=== PATIENT | male | born 1950 | race African-American/Black ===

== ENCOUNTER 2020-01-18 08:07 | Emergency (ER) | payer OTHER ==
[2020-01-18] MEDS ORDERED: DIPHENHYDRAMINE 50 MG/ML VIAL ONE (08:36)
[2020-01-18] MEDS ORDERED: METHYLPREDNISOLONE 125 MG INJ ONE (08:36)
[2020-01-18 09:04] LABS: Absolute Lymphocytes (CBC) 0.5 K/uL (0.7-4.9); Basophils % 0.4 % (0-1.3); Hematocrit 28.9 % (39.6-49.0); Lymphocytes % 4.3 % (15.3-44.8); MPV 8.8 fL (7.6-11.3); RBC Red Blood Cell Count 2.45 M/uL (4.33-5.43)
[2020-01-18 09:05] LABS: Protime INR 0.91
[2020-01-18 09:14] LABS: Potassium 3.8 mmol/L (3.5-5.1); Uric Acid 10.1 mg/dL (3.5-7.2)
--- NOTE | 2020-01-18 09:23 | RAD REPORT ---
EXAM DESCRIPTION: RAD - Elbow Left 3 View - 01/18/2020 9:14 am CLINICAL HISTORY: Left elbow swelling FINDINGS: A joint effusion is suspected Bones are osteoporotic A sideplate affix is an old ulnar fracture No acute fracture or dislocation seen
--- NOTE | 2020-01-18 09:26 | RAD REPORT ---
EXAM DESCRIPTION: RAD -Hand Left 3 View - 01/18/2020 9:14 am CLINICAL HISTORY: Left hand pain FINDINGS: No fracture or dislocation is seen. Calcifications within the wrist joint. Narrowing carpometacarpal joint. Narrowing of the third MCP aiyana int Osteoporosis
[2020-01-18] MEDS ORDERED: COLCHICINE 0.6 MG TAB ONE (10:10)
--- NOTE | 2020-01-18 10:13 | RAD REPORT ---
EXAM DESCRIPTION: USExtremity Venous Uni Ltd01/18/2020 9:55 am CLINICAL HISTORY: Left arm swelling COMPARISON: None FINDINGS: The left internal jugular, left subclavian, left cephalic, left axillary, left brachial, l eft basilic veins are generally compressible and demonstrate augmentation. Doppler demonstrates good flow. IMPRESSION: No evidence of thrombus within the veins of the left upper extremity
[2020-01-18 11:03] VITALS: TEMP 98.4
[2020-01-18 11:06] VITALS: BP 118/82; O2SAT 97
[2020-01-18 12:07] LABS: Blood Morphology Comment NOTED (NOT SEEN); Macrocytosis 2+; Platelet Estimate ADEQ; Urine White Blood Cell Casts OK
[2020-01-18 12:08] LABS: Hypochromasia 1+; Target Cells 1+
--- NOTE | 2020-01-25 12:04 | ER ---
Nurse's Notes [facility] Name: Sohail Bauer Sr Age: 70 yrs Sex: Male : 1950 Arrival Date: 01/18/2020 Time: 08:10 Bed 13 Private MD: Diagnosis: Localized swelling, mass and lump, left upper limb;Gout;Inflammatory polyarthropathy Presentation: 01/17 08:11 Chief complaint: Patient states: left arm swelling and left arm pain that began this aa5 morning. 08:11 Onset of symptoms was January 18, 2020. aa5 08:11 Acuity: ANGÉLICA 3 aa5 08:11 Method Of Arrival: Wheelchair aa5 08:11 Coronavirus screen: Proceed with normal triage. Patient denies a cough. Patient denies aa5 shortness of breath or difficulty breathing. Patient denies measured and/or subjective temperature greater than 100.4F prior to today's visit. Patient denies travel on a cruise ship or to a country the [facility] currently lists as an affected area. Patient denies contact with known and/or suspected case of COVID-19. Ebola Screen: Patient negative for fever greater than or equal to 101.5 degrees Fahrenheit, and additional compatible Ebola Virus Disease symptoms. Risk Assessment: Do you want to hurt yourself or someone else? Patient reports no desire to harm self or others. 08:23 Initial Sepsis Screen: Does the patient meet any 2 criteria? No. Patient's initial bp sepsis screen is negative. Does the patient have a suspected source of infection? No. Patient's initial sepsis screen is negative. Triage Assessment: 08:22 General: Appears in no apparent distress. uncomfortable, Behavior is calm, cooperative, bp appropriate for age. Pain: Complains of pain in left hand and left elbow. EENT: No deficits noted. Neuro: No deficits noted. Cardiovascular: No deficits noted. Respiratory: No deficits noted. GI: No signs and/or symptoms were reported involving the gastrointestinal system. : No signs and/or symptoms were reported regarding the genitourinary system. Derm: Rash noted that is urticaria, on left arm. Musculoskeletal: Circulation, motion, and sensation intact. Range of motion: intact in all extremities, Swelling present in left hand and left elbow. Historical: - Allergies: 09:02 No Known Allergies; bp - Home Meds: :02 aspirin 81 mg Oral TbEC 1 tab once daily [Active]; BLOOD PRESSURE PILLS [Active]; bp - PMHx: 09:02 Hypertension; bp - Immunization history:: Adult Immunizations up to date. - Social history:: Smoking status: Patient denies any tobacco usage or history of. - Family history:: not pertinent. - Hospitalizations: : No recent hospitalization is reported. Screenin:24 Abuse screen: Denies threats or abuse. Denies injuries from another. Nutritional bp screening: No deficits noted. Tuberculosis screening: No symptoms or risk factors identified. Fall Risk None identified. Assessment: 08:24 General: SEE TRIAGE NOTE. bp 09:02 Reassessment: XRAY AT B/S. bp 10:35 Reassessment: PT D/C HOME VIA W/C, DX WITH POLYARTHROPATHY. bp Vital Signs: 08:23 BP 135 / 88; Pulse 86; Resp 17; Temp 98.4; Pulse Ox 100% ; bp 08:58 BP 128 / 83; Pulse 87; Resp 16; Pulse Ox 100% ; bp 10:31 BP 118 / 82; Pulse 99; Resp 16; Pulse Ox 97% ; bp ED Course: 08:10 Patient arrived in ED. as 08:10 Arm band placed on Patient placed in an exam room, on a stretcher. aa5 08:11 Waqas Puente MD is Attending Physician. rn 08:12 Fili Resendez, RAJAT is Primary Nurse. bp 08:20 Triage completed. aa5 08:24 Patient has correct armband on for positive identification. Bed in low position. Call bp light in reach. Side rails up X2. 08:30 Inserted saline lock: 22 gauge in right forearm, using aseptic technique. Blood bp collected. 09:15 XRAY Elbow LEFT 3 view In Process Unspecified. EDMS 09:15 XRAY Hand LEFT 3 View In Process Unspecified. EDMS 09:50 Ultrasound completed. Patient tolerated well. Notified Primary Nurse . sg3 09:54 Extremity Venous Uni Ltd In Process Unspecified. EDMS 10:36 No provider procedures requiring assistance completed. IV discontinued, intact, bp bleeding controlled, No redness/swelling at site. Pressure dressing applied. Administered Medications: 08:30 Drug: SOLU-Medrol 125 mg Route: IVP; Site: right forearm; bp 10:30 Follow up: Response: No adverse reaction; Pain is decreased bp 08:30 Drug: Benadryl 12.5 mg Route: IVP; Site: right forearm; bp 10:30 Follow up: Response: No adverse reaction; Pain is decreased bp 10:00 Drug: Colchicine-Probenecid 1 tabs Route: PO; bp 10:31 Follow up: Response: No adverse reaction bp Outcome: 10:03 Discharge ordered by . rn 10:36 Discharged to home via wheelchair, with family. bp 10:36 Condition: stable 10:36 Discharge instructions given to patient, Instructed on discharge instructions, follow up and referral plans. medication usage, Demonstrated understanding of instructions, follow-up care, medications, Prescriptions given X 2. 10:37 Patient left the ED. bp Signatures: Dispatcher [employer] EDMS Caren Navarro Roman, MD MD rn Calderon, Audri RN RN aa5 Fili Resendez RN RN bp Ladonna Roberto 3
--- NOTE | 2020-01-25 12:04 | EDPHYS ---
Physician Documentation [facility] Name: Sohail Bauer Sr Age: 70 yrs Sex: Male : 1950 Arrival Date: 01/18/2020 Time: 08:10 Bed 13 Private MD: ED Physician Waqas Puente HPI: 01/17 08:21 This 70 yrs old Black Male presents to ER via Wheelchair with complaints of Arm rn Swelling. 08:21 Reports left arm swelling, began yesterday at hand, woke up today and left arm swollen rn to elbow, + painful to move arm beyond elbow, reports has happened before, told was bursitis, no fever, no trauma. No recent surgery or hx of dvt. . Onset: The symptoms/episode began/occurred yesterday. Severity of symptoms: At their worst the symptoms were moderate in the emergency department the symptoms are unchanged. The patient has experienced a previous episode. The patient has not recently seen a physician. Historical: - Allergies: 09:02 No Known Allergies; bp - Home Meds: 09:02 aspirin 81 mg Oral TbEC 1 tab once daily [Active]; BLOOD PRESSURE PILLS [Active]; bp - PMHx: 09:02 Hypertension; bp - Immunization history:: Adult Immunizations up to date. - Social history:: Smoking status: Patient denies any tobacco usage or history of. - Family history:: not pertinent. - Hospitalizations: : No recent hospitalization is reported. ROS: 08:21 Constitutional: Negative for fever, chills, and weight loss, Neck: Negative for injury, rn pain, and swelling, Cardiovascular: Negative for chest pain, palpitations Respiratory: Negative for shortness of breath, cough, wheezing, and pleuritic chest pain, Abdomen/GI: Negative for abdominal pain, nausea, vomiting, diarrhea, and constipation, Back: Negative for injury and pain, MS/Extremity: Negative for injury, + swelling left arm Skin: Negative for injury Exam: 08:21 Constitutional: This is a well developed, well nourished patient who is awake, alert, rn and in no acute distress. Head/Face: Normocephalic, atraumatic. Cardiovascular: Regular rate and rhythm. No pulse deficits. Respiratory: Speaking full sentences. No increased work of breathing, no retractions or nasal flaring. Abdomen/GI: Soft, non-tender Skin: Warm, dry, left mid-arm with some urticarial lesions, no streaking MS/ Extremity: Pulses equal, no cyanosis. + moderate swelling of left hand without firmness or open wounds, + moderate swelling left elbow and mid-forearm, no warmth or fluctuance. Neuro: Awake and alert, GCS 15, oriented to person, place, time, and situation. Vital Signs: 08:23 BP 135 / 88; Pulse 86; Resp 17; Temp 98.4; Pulse Ox 100% ; bp 08:58 BP 128 / 83; Pulse 87; Resp 16; Pulse Ox 100% ; bp 10:31 BP 118 / 82; Pulse 99; Resp 16; Pulse Ox 97% ; bp MDM: 08:11 Patient medically screened. rn 10:01 Differential Diagnosis Gout, pseudogout, inflammatory arthritis, local allergic rn reaction, early cellulitis. . Data reviewed: vital signs, nurses notes, lab test result(s), radiologic studies, plain films, ultrasound, and as a result, I will discharge patient. Counseling: I had a detailed discussion with the patient and/or guardian regarding: the historical points, exam findings, and any diagnostic results supporting the discharge/admit diagnosis, lab results, radiology results, the need for outpatient follow up, to return to the emergency department if symptoms worsen or persist or if there are any questions or concerns that arise at home. Response to treatment: the patient's symptoms have mildly improved after treatment, and as a result, I will discharge patient. Special discussion: I discussed with the patient/guardian in detail that at this point there is no indication for admission to the hospital. It is understood, however, that if the symptoms persist or worsen the patient needs to return immediately for re-evaluation. Based on the history and exam findings, there is no indication for further emergent testing or inpatient evaluation. I discussed with the patient/guardian the need to see the primary care provider for further evaluation of the symptoms. ED course: Uric acid level elevated, has had this before in past, most likely gout, or other inflammatory arthritis. U/S neg for dvt, no fracture/dislocation on xrays, procal neg, will dc home with steroids and abx given age and infection not definitively ruled out. Spoke with daughter, she is going ot f/u with pcp and return precautions/instructions given to both daughter and patient. . 01/17 08:20 Order name: CBC with Diff rn 01/17 08:20 Order name: Basic Metabolic Panel; Complete Time: 09: rn 01/17 08:20 Order name: Blood Culture Adult (2) rn 01/17 08:20 Order name: Procalcitonin; Complete Time: : rn 01/17 08:20 Order name: Ptt, Activated; Complete Time: : rn 01/17 08:20 Order name: PT-INR; Complete Time: : rn 01/17 08:21 Order name: XRAY Elbow LEFT 3 view; Complete Time: : rn 01/17 08:21 Order name: XRAY Hand LEFT 3 View; Complete Time: : rn 01/17 08:23 Order name: Uric Acid; Complete Time: : rn 01/17 08:29 Order name: Extremity Venous Uni Ltd; Complete Time: 10:23 EDMA 01/17 08:20 Order name: IV Start; Complete Time: 08:57 rn Administered Medications: 08:30 Drug: SOLU-Medrol 125 mg Route: IVP; Site: right forearm; bp 10:30 Follow up: Response: No adverse reaction; Pain is decreased bp 08:30 Drug: Benadryl 12.5 mg Route: IVP; Site: right forearm; bp 10:30 Follow up: Response: No adverse reaction; Pain is decreased bp 10:00 Drug: Colchicine-Probenecid 1 tabs Route: PO; bp 10:31 Follow up: Response: No adverse reaction bp Disposition: 01/18/20 10:03 Discharged to Home. Impression: Localized swelling, mass and lump, left upper limb, Gout, Inflammatory polyarthropathy. - Condition is Stable. - Discharge Instructions: Joint Pain, Gout. - Prescriptions for Medrol (Aaron) 4 mg Oral Tablets, Dose Pack - take 1 tablet by ORAL route as directed - follow package instructions; 1 packet. Bactrim DS 800- 160 mg Oral Tablet - take 1 tablet by ORAL route every 12 hours for 10 days; 20 tablet. - Medication Reconciliation Form, Thank You Letter, Antibiotic Education, Prescription Opioid Use form. - Follow up: Private Physician; When: 5 - 6 days; Reason: Recheck today's complaints, Re-evaluation by your physician. - Problem is new. - Symptoms have improved. Signatures: Dispatcher [employer] EDMA Waqas Puente MD MD rn Mal, Fili, RN RN bp Corrections: (The following items were deleted from the chart) 08:25 08:21 Constitutional: This is a well developed, well nourished patient who is awake, rn alert, and in no acute distress. Head/Face: Normocephalic, atraumatic. rn 08:27 08:21 Constitutional: This is a well developed, well nourished patient who is awake, rn alert, and in no acute distress. Head/Face: Normocephalic, atraumatic. Cardiovascular: Regular rate and rhythm. No pulse deficits. Respiratory: Speaking full sentences. No increased work of breathing, no retractions or nasal flaring. Abdomen/GI: Soft, non-tender Skin: Warm, dry, left mid-arm with some urticarial lesions, no streaking MS/ Extremity: Pulses equal, no cyanosis. + moderate swelling of left hand without firmness or open wounds, + moderate swelling left elbow and mid-forearm, no warmth or fluctuance. rn 08:46 08:43 Extremity Venous Uni Ltd+US.RAD.BRZ ordered. EDMA EDMS 08:55 08:31 Elbow Left 3 View ordered. [facility] EDMS 08:55 08:31 Hand Left 3 View ordered. [facility] EDMS 10:37 10:03 01/18/2020 10:03 Discharged to Home. Impression: Localized swelling, mass and bp lump, left upper limb; Gout; Inflammatory polyarthropathy. Condition is Stable. Forms are Medication Reconciliation Form, Thank You Letter, Antibiotic Education, Prescription Opioid Use. Follow up: Private Physician; When: 5 - 6 days; Reason: Recheck today's complaints, Re-evaluation by your physician. Problem is new. Symptoms have improved. rn
== END 2020-01-18 10:37 | disposition home or self-care (01) ==
LOC: ER 08:07
DX: M10.9 Gout, unspecified (principal); M06.4 Inflammatory polyarthropathy; I10 Essential (primary) hypertension; Z79.82 Long term (current) use of aspirin
CPT/HCPCS: 87040 ×2; 85025; 80048; 36415; 85610; 84550; 85730; 84145; 73130; 73080; 93971; 96375; 96374; 99284; J1200; J2930

== ENCOUNTER 2020-01-28 09:11 | Emergency (ER) | payer OTHER ==
--- NOTE | 2020-01-28 10:26 | RAD REPORT ---
EXAM DESCRIPTION: CT - Head C Spine Mpr Wo Con - 01/28/2020 10:08 am CLINICAL HISTORY: Head and neck injury status post fall. Head and neck pain COMPARISON: None. TECHNIQUE: Computed axial tomography of the head and cervical spine was obtained. Sagittal and coronal reconstruction was performed. All CT scans are performed using dose optimization technique as appropriate and may include automated exposure control or mA/KV adjustment according to patient size. FINDINGS: An intracranial bleed is not seen. The ventricles are normal in caliber. An extra-axial fl uid collection is not noted.Fluid within the visualized sinuses and mastoids is not seen A cervical fracture is not visualized. No dislocation is noted. Spondylosis involves the cervical spi ne resulting in central and foraminal stenosis 12 millimeter right upper lobe opacity IMPRESSION: No acute intracranial abnormality is seen. A cervical fracture is not visualized. If the patient continues to have symptoms to suggest intracra nial /spinal cord pathology then MRI would be recommended 12 millimeter right upper lobe opacity. Follow-up CT chest in 3 months recommended to assess stabilit y
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
[2020-01-28 11:49] VITALS: O2SAT 98
[2020-01-28 11:51] VITALS: BP 140/80
== END 2020-01-28 11:41 | disposition home or self-care (01) ==
LOC: ER 09:11
DX: Z04.1 Encounter for examination and observation following transport accident (principal); V43.62XA Car passenger injured in collision with other type car in traffic accident, initial encounter; Y93.89 Activity, other specified; Y92.410 Unspecified street and highway as the place of occurrence of the external cause
CPT/HCPCS: 70450; 72125; 99284

== ENCOUNTER 2021-07-31 00:45 | Emergency (ER) | payer OTHER ==
--- OUTSIDE RECORDS SUMMARY | 2021-07-31 00:48 | XMS REPORT | Continuity of Care Document ---
:1950 Author Organization [facility] t Address [address] [place] [address] [address]. [address] [place] [address] Care Team Providers Name Role Phone JANE RAMOS Attending Clinician Unavailable Darnell Attending Clinician Unavailable A_Byrd Attending Clinician Unavailable JANE RAMOS Admitting Clinician Unavailable Darnell Admitting Clinician Unavailable A_Byrd Admitting Clinician Unavailable Payers Payer Name Policy Type Policy Number Effective Date Expiration Date S aamir [employer] MEDICARE HMO [id number] 2019 POS 00:00:00 MEDICARE [place]: [id number] 2012 [employer] 00:00:00 [employer]NA [id number] 2019 00:00:00 [employer] [id number] CARE ADVANTAGE (MEDICARE REPLACEMENT/ADVANTA GE - HMO) [employer] LIFE [id number] INSURANCE COMPANY - PLAN F (MEDICARE SUPPLEMENT) [employer] (MEDICARE [id number] REPLACEMENT PPO) Problems This patient has no known problems. Allergies, Adverse Reactions, Alerts Allergy Allergy Status Severity Reaction(s) Onset Inactive Treating Comm ents Source Name Type Date Date Clinician No Known DA Active U 2019-08 [facility] 09-14 [place] [facility] 00:00: [facility] No Known DA Active U 2019-08 [facility] Allergie 09-14 [place] [facility] 00:00: [facility] 00 are [facility] Medications This patient has no known medications. Procedures Procedure Date / Time Performed Performing Clinician [facility] e [id number] 2020-07-15 00:00:00 [email or web address] [facility] [id number] 2020-07-15 00:00:00 BURDA.06 [facility] Encounters Start End Encounter Admission Attending Care Care Encounter Source Date/Time Date/Time Type Type Clinicians Facility Department ID 2021-06-[address] [facility] [facility] Cardiology [id number] 17:13:42 [facility] 2020-07-14 Inpatient EM Darnell [facility] ADMI [id number] [facility] 21:53:00 [place] [id number] [facility] 2020-02-17 2020-02-17 [facility] [id number] [place] 12:21:00 12:21:00 0624 [facility] 2020-02-17 2020-02-17 [place] [id number] [place] 12:21:00 12:21:00 0713 [facility] 2019-08-24 2019-08-24 Outpatient A_Byrd MMG MMG [id number] [place] 11:11:00 11:11:00 0212 [facility] Results Test Description Test Time Test Comments Results Result Comments Source COMPREHENSIVE METABOLIC PANEL 2020-07-15 06:39:00 Test Item Value Reference Range Interpretation Comme nts SODIUM (test code = NA) 134 MMOL/L 136-143 L POTASSIUM (test code = K) 3.9 MMOL/L 3.5-5.1 N CHLORIDE (test code = CL) 99 MMOL/L 98-107 N CARBON DIOXIDE (test code = 28 mmol/L 24-31 N CO2) GLUCOSE (test code = GLU) 78 mg/dL 70-104 N BLOOD UREA NITROGEN (test 15.5 MG/DL 7.0-21.0 N code = BUN) GLOMERULAR FILTRATION RATE >=60 max estimate >60 The estimated glomerular (test code = GFR) filtration rate is computed usingpatient ra ce, age (>18), sex, and serum creatinine. If anyof the needed data ashok ments are missing the Lab oratory cannot compute an estimation of the glomerul ar filtration rate. CREATININE (test code = 1.1 mg/dL 0.8-1.5 N CREAT) TOTAL PROTEIN (test code = 7.0 g/dL 6.3-8.3 N PROT) ALBUMIN (test code = ALB) 4.0 G/DL 3.5-5.0 N CALCIUM (test code = CA) 9.8 mg/dL 8.8-10.2 N BILIRUBIN TOTAL (test code = 0.3 mg/dL 0.2-1.0 N BILT) SGOT/AST (test code = AST) 18 IU/L 10-34 N SGPT/ALT (test code = ALT) 13 U/L 10-44 N ALKALINE PHOSPHATASE (test 58 U/L 45-120 N code = ALKP) PROTHROMBIN [id number] 06:17:00 Test Item Value Reference Range Interpretation Comments PROTHROMBIN TIME 14.0 SECONDS 10.3-12.9 H PATIENT (test code = PTP) INTERNATIONAL 1.23 INR UNIT 0.9-1.11 H The INR is us eful only NORMAL RATIO (test for monit oring code = INR) anticoagulant therapy.It may be unreliable in t he initial phase o f antigoagulation and in unstable patien ts. Indication for Anticoagulation Recommend ed INR 1. Prevention o f venous thomboembolism 2.0-3.0in high -risk patients; treat ment of venousthrombosi s and pulmonary embol ism aftera course o f heparin; preven tion of systemicembolis m in a variety of cond itions, including atria l fibrillation an d prothetic tissu e heart valves, 2. Pros thetic mechanical hear t valves; 2.5-3.5recurren t systemic emboli sm. THROMBOPLASTIN TIME [id number] 06:17:00 Test Item Value Reference Range Interpretation Comments THROMBOPLASTIN TIME 26.2 SECONDS 23.8-34.8 N INTERPRE TATIVE PARTIAL (test code = DATA: erapeutic PTT) range: Unfractionated heparin:55 - 80 seconds Argatroban:1.5 to 3 times the basel ine PTT CBC W/AUTO [id number] 06:10:00 Test Item Value Reference Range Interpretation Comments WHITE BLOOD CELL (test code = 6.4 x10 3/uL 4.8-10.8 N WBC) RED BLOOD CELL (test code = 2.36 x10 6/uL 4.70-6.10 L RBC) HEMOGLOBIN (test code = HGB) 9.5 g/dL 14.5-20 L HEMATOCRIT (test code = HCT) 27.6 % 42.0-52.0 L MEAN CELL VOLUME (test code = 116.9 fL 80.0-94.0 H MCV) MEAN CELL HGB (test code = MCH) 40.3 pg 27-31 H MEAN CELL HGB CONCENTRATION 34.4 G/DL 33-36.5 N (test code = MCHC) RED CELL DISTRIBUTION WIDTH 17.2 % 12.9-16.9 H (test code = RDW) PLATELET COUNT (test code = 242 150-440 N PLT) MEAN PLATELET VOLUME (test code 10.5 fL 8.9-12.4 N = MPV) NEUTROPHIL % (test code = NT%) 58.0 % 42.2-75.2 N LYMPHOCYTE % (test code = LY%) 22.7 % 20.5-51.1 N MONOCYTE % (test code = MO%) 15.4 % 1.7-9.3 H EOSINOPHIL % (test code = EO%) 2.8 % 0.0-7.0 N BASOPHIL % (test code = BA%) 0.6 % 0-2.5 N NEUTROPHIL # (test code = NT#) 3.70 x10 3/uL 1.80-7.70 N LYMPHOCYTE # (test code = LY#) 1.45 x10 3/uL 1.00-4.80 N MONOCYTE # (test code = MO#) 0.98 x10 3/uL 0.00-0.80 H EOSINOPHIL # (test code = EO#) 0.18 x10 3/uL 0.00-0.45 N BASOPHIL # (test code = BA#) 0.04 x10 3/uL 0.0-0.20 N CBC W/AUTO [id number] 06:10:00 Test Item Value Reference Range Interpretation Comments WHITE BLOOD CELL (test code = 6.4 x10 3/uL 4.8-10.8 N WBC) RED BLOOD CELL (test code = 2.36 x10 6/uL 4.70-6.10 L RBC) HEMOGLOBIN (test code = HGB) 9.5 g/dL 14.5-20 L HEMATOCRIT (test code = HCT) 27.6 % 42.0-52.0 L MEAN CELL VOLUME (test code = 116.9 fL 80.0-94.0 H MCV) MEAN CELL HGB (test code = MCH) 40.3 pg 27-31 H MEAN CELL HGB CONCENTRATION 34.4 G/DL 33-36.5 N (test code = MCHC) RED CELL DISTRIBUTION WIDTH 17.2 % 12.9-16.9 H (test code = RDW) PLATELET COUNT (test code = 242 150-440 N PLT) MEAN PLATELET VOLUME (test code 10.5 fL 8.9-12.4 N = MPV) NEUTROPHIL % (test code = NT%) 58.0 % 42.2-75.2 N LYMPHOCYTE % (test code = LY%) 22.7 % 20.5-51.1 N MONOCYTE % (test code = MO%) 15.4 % 1.7-9.3 H EOSINOPHIL % (test code = EO%) 2.8 % 0.0-7.0 N BASOPHIL % (test code = BA%) 0.6 % 0-2.5 N NEUTROPHIL # (test code = NT#) 3.70 x10 3/uL 1.80-7.70 N LYMPHOCYTE # (test code = LY#) 1.45 x10 3/uL 1.00-4.80 N MONOCYTE # (test code = MO#) 0.98 x10 3/uL 0.00-0.80 H EOSINOPHIL # (test code = EO#) 0.18 x10 3/uL 0.00-0.45 N BASOPHIL # (test code = BA#) 0.04 x10 3/uL 0.0-0.20 N
[2021-07-31] MEDS ORDERED: ONDANSETRON 4 MG/2 ML VIAL ONE (02:19)
[2021-07-31] MEDS ORDERED: MORPHINE 4 MG/ML SYR ONE (02:19)
[2021-07-31 02:39] LABS: Albumin 3.7 g/dL (3.4-5.0); Bilirubin Total 0.9 mg/dL (0.2-1.0); Potassium 3.8 mmol/L (3.5-5.1); Protein, Total 7.4 g/dL (6.4-8.2); Uric Acid 7.1 mg/dL (3.5-7.2)
[2021-07-31 02:40] LABS: Absolute Lymphocytes (CBC) 1.3 K/uL (0.7-4.9); Basophils % 1.5 % (0-1.3); Hematocrit 26.8 % (39.6-49.0); Lymphocytes % 13.1 % (15.3-44.8); MPV 9.4 fL (7.6-11.3); RBC Red Blood Cell Count 2.27 M/uL (4.33-5.43)
--- NOTE | 2021-07-31 03:15 | EDPHYS ---
Physician Documentation [facility] Name: Sohail Bauer Sr Age: 71 yrs Sex: Male : 1950 Arrival Date: 07/31/2021 Time: 00:53 Bed 14 Private MD: ED Physician Ashwin Teresa HPI: 07/31 01:59 This 71 yrs old Black Male presents to ER via Ambulatory with complaints of Pedal Edema pm1 - Bilateral. 01:59 Onset: The symptoms/episode began/occurred 1 week(s) ago. pm1 01:59 Modifying factors: The symptoms are alleviated by nothing. the symptoms are aggravated pm1 by nothing. Associated signs and symptoms: Pertinent negatives Chest pain, shortness of breath. Treatment prior to arrival includes: no previous treatment. Severity of symptoms: in the emergency department the symptoms are actually worse. The patient has been recently seen by a physician: the patient's primary care provider, 5 day(s) ago, Annual exam, but did not discuss his bilateral pedal edema even though it was present at the time. Historical: - Allergies: 01:40 No Known Allergies; lp1 - Home Meds: 01:40 omeprazole 20 mg Oral cpDR 1 cap once daily [Active]; lisinopril 10 mg Oral tab 1 tab lp1 once daily [Active]; indomethacin 50 mg Oral cap 1 cap 2 times per day [Active]; apixaban 2.5 mg oral tab 1 tab 2 times per day [Active]; metoprolol tartrate 50 mg Oral tab 1 tab once daily [Active]; atorvastatin 20 mg oral tab 1 tab once daily [Active]; - PMHx: 01:40 Hypertension; Gout; hyperlipidemia; lp1 - PSHx: 01:40 heart stent x1; lp1 - Immunization history:: Adult Immunizations up to date. - Social history:: Smoking status: Patient reports the use of cigarette tobacco products, smokes one-half pack cigarettes per day. ROS: 01:59 Constitutional: Negative for fever, chills, and weight loss, Respiratory: Negative for pm1 shortness of breath, cough, wheezing, and pleuritic chest pain. 01:59 Abdomen/GI: Negative for abdominal pain, nausea, vomiting, diarrhea, and constipation, MS/Extremity: Negative for injury and deformity, Skin: Negative for injury, rash, and discoloration, Neuro: Negative for headache, weakness, numbness, tingling, and seizure. 01:59 Cardiovascular: Positive for edema, Negative for chest pain. 01:59 Respiratory: Positive for shortness of breath, Negative for cough. 01:59 All other systems are negative. Exam: 01:59 Constitutional: This is a well developed, well nourished patient who is awake, alert, pm1 and in no acute distress. Head/Face: Normocephalic, atraumatic. 01:59 Skin: Warm, dry with normal turgor. Normal color with no rashes, no lesions, and no evidence of cellulitis. MS/ Extremity: Pulses equal, no cyanosis. Neurovascular intact. Full, normal range of motion. 01:59 Eyes: Exam is negative for acute changes, Extraocular movements: no acute changes, Conjunctiva: no acute changes, no injection. 01:59 ENT: Mouth: no acute changes, Lips: normal, moist, Oral mucosa: normal, pink and intact, moist. 01:59 Cardiovascular: Rate: normal, Rhythm: regular, Pulses: no pulse deficits are appreciated, Heart sounds: normal, normal S1and S2, Edema: pedal edema, that is moderate, bilateral. 01:59 Respiratory: Exam negative for acute changes, respiratory distress, shortness of breath, Breath sounds: are clear throughout. 01:59 Abdomen/GI: Inspection: abdomen appears normal, Palpation: abdomen is soft and non-tender, in all quadrants. 01:59 Neuro: Exam negative for acute changes, Orientation: is normal, Mentation: is normal, Motor: is normal, moves all fours. Vital Signs: 01:30 BP 173 / 98; Pulse 78; Resp 18; Temp 98(O); Pulse Ox 90% on R/A; Weight 83.46 kg (R); lp1 Height 6 ft. 2 in. (187.96 cm); Pain 6/10; 02:45 BP 166 / 88; Pulse 76; Resp 19; Temp 98.2; Pulse Ox 95% on R/A; mr2 01:30 Body Mass Index 23.62 (83.46 kg, 187.96 cm) lp1 MDM: 01:20 Patient medically screened. pm1 02:06 Data reviewed: vital signs. pm1 02:06 ED course: Negative for DVT per U/S. pm1 03:00 Counseling: I had a detailed discussion with the patient and/or guardian regarding: the pm1 historical points, exam findings, and any diagnostic results supporting the discharge/admit diagnosis, lab results, radiology results, the need for outpatient follow up, to return to the emergency department if symptoms worsen or persist or if there are any questions or concerns that arise at home. 03:16 ED course: Patient without shortness of breath, chest pain. Dependent peripheral edema pm1 to lower extremities without symptoms. Negative for DVT. Therefore patient can follow-up with his primary care physician or plastic sewer for diuretic treatment and further evaluation. 07/31 01:22 Order name: Uric Acid; Complete Time: 02:51 pm1 07/31 01:22 Order name: CBC with Diff; Complete Time: 03:22 pm1 07/31 01:21 Order name: Extrem Venous W Compression Doug US pm1 07/31 01:22 Order name: Chest Single View XRAY pm1 07/31 01:22 Order name: CMP; Complete Time: 02:51 pm1 07/31 02:42 Order name: CBC Smear Scan; Complete Time: 03:22 EDMS 07/31 01:22 Order name: EKG; Complete Time: 01:22 pm1 07/31 01:22 Order name: EKG - Nurse/Tech; Complete Time: 01:57 pm1 07/31 01:22 Order name: IV Saline Lock pm1 Administered Medications: 02:58 Drug: morphine 4 mg Route: IVP; Site: left antecubital; mr2 02:59 Drug: Zofran (Ondansetron) 4 mg Route: IVP; Site: left antecubital; mr2 Disposition: 04:38 Co-signature as Attending Physician, Ashwin Teresa MD. [email or web address] Disposition Summary: 07/31/21 03:15 Discharge Ordered Location: Home pm1 Problem: new pm1 Symptoms: have improved pm1 Condition: Stable pm1 Diagnosis - Pedal edema pm1 Followup: pm1 - With: Emergency Department - When: As needed - Reason: Worsening of condition Followup: pm1 - With: Private Physician - When: 2 - 3 days - Reason: Recheck today's complaints, Continuance of care, Re-evaluation by your physician Discharge Instructions: - Discharge Summary Sheet pm1 - Edema pm1 Forms: - Medication Reconciliation Form pm1 - Thank You Letter pm1 - Antibiotic Education pm1 - Prescription Opioid Use pm1 Signatures: Dispatcher [employer] EDElizabeth Rich RN RN lp1 Edwin Beasley NP RESTAURANT GENERAL MANAGER pm1 Ashwin Teresa MD MD 7 Rogelio Rodriges RN RN mr2
--- NOTE | 2021-07-31 03:15 | ER ---
Nurse's Notes [facility] Name: Sohail Bauer Sr Age: 71 yrs Sex: Male : 1950 Arrival Date: 07/31/2021 Time: 00:53 Bed 14 Private MD: Diagnosis: Pedal edema Presentation: 07/31 01:29 Acuity: ANGÉLICA 3 lp1 01:30 Chief complaint: Patient states: bilateral lower leg swelling x 1 week, with worsening lp1 pain; Denies shortness of breath, chest pain. 01:30 Coronavirus screen: At this time, the client does not indicate any symptoms associated lp1 with coronavirus-19. Ebola Screen: No symptoms or risks identified at this time. Initial Sepsis Screen: Does the patient meet any 2 criteria? No. Patient's initial sepsis screen is negative. Does the patient have a suspected source of infection? No. Patient's initial sepsis screen is negative. Risk Assessment: Do you want to hurt yourself or someone else? Patient reports no desire to harm self or others. Onset of symptoms was July 31, 2021. 01:30 Method Of Arrival: Ambulatory lp1 Triage Assessment: 01:00 General: Appears in no apparent distress. uncomfortable, Behavior is calm, cooperative. mr2 Pain: Complains of pain in right leg and left leg. Historical: - Allergies: 01:40 No Known Allergies; lp1 - Home Meds: 01:40 omeprazole 20 mg Oral cpDR 1 cap once daily [Active]; lisinopril 10 mg Oral tab 1 tab lp1 once daily [Active]; indomethacin 50 mg Oral cap 1 cap 2 times per day [Active]; apixaban 2.5 mg oral tab 1 tab 2 times per day [Active]; metoprolol tartrate 50 mg Oral tab 1 tab once daily [Active]; atorvastatin 20 mg oral tab 1 tab once daily [Active]; - PMHx: 01:40 Hypertension; Gout; hyperlipidemia; lp1 - PSHx: 01:40 heart stent x1; lp1 - Immunization history:: Adult Immunizations up to date. - Social history:: Smoking status: Patient reports the use of cigarette tobacco products, smokes one-half pack cigarettes per day. Screenin:00 Abuse screen: Denies threats or abuse. Denies injuries from another. Nutritional mr2 screening: No deficits noted. Tuberculosis screening: No symptoms or risk factors identified. Fall Risk IV access (20 points). Ambulatory Aid- Crutches/Cane/Walker (15 pts). Gait- Weak (10 pts.). Vital Signs: 01:30 BP 173 / 98; Pulse 78; Resp 18; Temp 98(O); Pulse Ox 90% on R/A; Weight 83.46 kg (R); lp1 Height 6 ft. 2 in. (187.96 cm); Pain 6/10; 02:45 BP 166 / 88; Pulse 76; Resp 19; Temp 98.2; Pulse Ox 95% on R/A; mr2 01:30 Body Mass Index 23.62 (83.46 kg, 187.96 cm) lp1 ED Course: 00:53 Patient arrived in ED. wm 01:10 Rogelio Rodriges, RAJAT is Primary Nurse. mr2 01:15 Edwin Beasley NP is PHCP. pm1 01:15 Ashwin Teresa MD is Attending Physician. pm1 01:20 Patient has correct armband on for positive identification. Bed in low position. Call mr2 light in reach. Side rails up X2. Adult w/ patient. 01:29 Triage completed. lp1 01:40 Arm band placed on. lp1 01:48 Chest Single View XRAY In Process Unspecified. EDMS 01:58 CMP Sent. mr2 01:58 CBC with Diff Sent. mr2 01:58 Uric Acid Sent. mr2 02:08 Extrem Venous W Compression Doug US In Process Unspecified. EDMS 02:40 No provider procedures requiring assistance completed. mr2 03:23 IV discontinued. mr2 Administered Medications: 02:58 Drug: morphine 4 mg Route: IVP; Site: left antecubital; mr2 02:59 Drug: Zofran (Ondansetron) 4 mg Route: IVP; Site: left antecubital; mr2 Outcome: 03:15 Discharge ordered by . pm1 03:20 Discharged to home ambulatory, with family. mr2 03:20 Condition: stable 03:20 Discharge instructions given to patient, Instructed on follow up and referral plans. Demonstrated understanding of follow-up care. 03:43 Patient left the ED. mr2 Signatures: Dispatcher [employer] EDMS Elizabeth Raza RN RN lp1 Edwin Beasley, SPECIAL LIBRARIAN SPECIAL LIBRARIAN pm1 Samra Cunningham Mike, RAJAT RN mr2
[2021-07-31 03:22] LABS: Blood Morphology Comment NOTED (NOT SEEN); Macrocytosis 2+; Platelet Estimate ADEQ; White Blood Cell Scan OK (OK)
[2021-07-31 03:53] VITALS: BP 166/88; TEMP 98.2; O2SAT 95
--- NOTE | 2021-07-31 08:21 | RAD REPORT ---
EXAM DESCRIPTION: US - Extrem Venous W Compress Doug - 07/31/2021 2:09 am CLINICAL HISTORY: Swelling;Pain Bilateral leg edema and swelling. COMPARISON: Extremity Venous Uni Ltd dated 01/18/2020 TECHNIQUE: Real-time sonographic interrogation of the left and right lower extremity deep venous sys tems was performed. FINDINGS: Normal compressibility, flow augmentation, phasic flow and spontaneous flow is identified in both the left and right lower extremity deep venous systems. IMPRESSION: No sonographic evidence of left or right lower extremity deep venous thrombosis.
--- NOTE | 2021-07-31 09:08 | RAD REPORT ---
EXAM DESCRIPTION: RAD - Chest Single View - 07/31/2021 1:48 am CLINICAL HISTORY: SWELLING Chest pain. COMPARISON: No comparisons FINDINGS: Portable technique limits examination quality. Moderate bilateral pulmonary opacities are present likely representing pulmonary edema. The heart is moderately enlarged in size. No displaced fractures.Trace right pleural effusion. IMPRESSION: Mild to moderate CHF.
== END 2021-07-31 03:43 | disposition home or self-care (01) ==
LOC: ER 00:45
DX: R60.9 Edema, unspecified (principal); I10 Essential (primary) hypertension; Z95.818 Presence of other cardiac implants and grafts; E78.5 Hyperlipidemia, unspecified; F17.210 Nicotine dependence, cigarettes, uncomplicated
CPT/HCPCS: 93005; 85025; 36415; 84550; 80053; 71045; 93970; 96375; 96374; 99283; J2405

== ENCOUNTER 2022-04-19 07:32 | Day surgery (SDC) | payer OTHER ==
[2022-04-17 17:12] LABS: Albumin 4.2 g/dL (3.4-5.0); Bilirubin Total 0.9 mg/dL (0.2-1.0); Ferritin 1087.2 ng/mL (26-388); Potassium 4.4 mmol/L (3.5-5.1); Protein, Total 7.7 g/dL (6.4-8.2)
[2022-04-17 17:24] LABS: Absolute Lymphocytes (CBC) 1.6 K/uL (0.7-4.9); Hematocrit 19.5 % (39.6-49.0); MCV 111.6 fL (80-100); MPV 9.5 fL (7.6-11.3); RBC Red Blood Cell Count 1.74 M/uL (4.33-5.43)
[2022-04-17 17:48] LABS: Anisocytosis 3+; Blood Morphology Comment NOTED (NOT SEEN); Hypochromasia 1+; Macrocytosis 2+; Platelet Estimate ADEQ; Platelets, Giant PRESENT; White Blood Cell Scan OK (OK)
[2022-04-19] MEDS ORDERED: NA CHLORIDE 0.9% 250 ML ONE ×2 (08:08→12:49)
[2022-04-19 09:42] VITALS: O2SAT 99; BMI 20.5
[2022-04-19 16:59] VITALS: BP 123/75; TEMP 98.8
== END 2022-04-19 16:58 | disposition home or self-care (01) ==
LOC: DS 07:32
PROVIDERS: ATTEND Internal Medicine Hematology & Oncology
DX: D62 Acute posthemorrhagic anemia (principal); K74.60 Unspecified cirrhosis of liver
CPT/HCPCS: 85025; 36415 ×2; 86900 ×2; 86850 ×2; 86901 ×2; 85018; 85014; 82728; 83540; 80053; 84466; 36430; P9016 ×2; J7050 ×2

== ENCOUNTER 2022-05-07 09:44 | Emergency (ER) | payer OTHER ==
--- OUTSIDE RECORDS SUMMARY | 2022-05-07 09:48 | XMS REPORT | Continuity of Care Document ---
:[address] [facility] t Address [address] [place] [address] Care Team Providers Name Role Phone SYLVESTER RAMOS Attending Clinician Unavailable Cayden Patrick Attending Clinician Unavailable JOYCELYN Attending Clinician Unavailable A_Byrd Attending Clinician Unavailable SYLVESTER RAMOS Admitting Clinician Unavailable Cayden Patrick Admitting Clinician Unavailable JOYCELYN Admitting Clinician Unavailable A_Byrd Admitting Clinician Unavailable Payers Payer Name Policy Type Policy Number Effective Date Expiration Date S ourvanessa AETNA MEDICARE HMO [id number] 2019 POS 00:00:00 [place]: [id number] 2012 [employer] 00:00:00 AETNA [id number] 2019 00:00:00 [employer] S[employer]IOR [id number] CARE ADVANTAGE (MEDICARE REPLACEMENT/ADVANTA GE - HMO) A[employer] LIFE [id number] INSURANCE COMPANY - PLAN F (MEDICARE SUPPLEMENT) AET[employer] (MEDICARE [id number] REPLACEMENT PPO) Problems This patient has no known problems. Allergies, Adverse Reactions, Alerts Allergy Allergy Status Severity Reaction(s) Onset Inactive Treating Comm ents Source Name Type Date Date Clinician No Known DA Active U 2019-08 [facility] Allerg 09-14 [facility] 00:00: [facility] 00 [facility] No Known DA Active U 2019-08 [facility] Allerg 09-14 [facility] 00[facility]00: [facility] Social History Social Habit Start Date Stop Date Quantity Comments Source Sex Assigned At [birth year] [facility] kes 00:00:00 00:00:00 [facility] Medications This patient has no known medications. Procedures Procedure Date / Time Performed Performing Clinician [facility] e [id number] 2020-07-15 00:00:00 [email or web address] [facility] [id number] 2020-07-15 00:00:00 [email or web address] [facility] Encounters Start End Encounter Admission Attending Care Care Encounter Source Date/Time Date/Time Type Type Clinicians Facility Department ID 2021-06-02 Inpatient ER [facility] Cardiology [id number] [facility] 17:13:42 [facility] 2020-07-14 Inpatient EM Darnell [facility] ADMI [id number] [facility] 21:53:00 Adnan 14 [facility] 2022-03-06 2022-03-06 Outpatient AJ_JESSICA LO [address] [place] 04:17:00 04:17:00 HN 0712 da [facility] Outre h Program 2020-02-17 2020-02-17 Outpatient A_Byrd [facility] [id number] [place] 12:21:00 12:21:00 0624 [facility] 2020-02-17 2020-02-17 Outpatient A_Byrd [facility] [id number] [place] 12:21:00 12:21:00 0713 [facility] Group 2019-08-24 2019-08-24 Outpatient A_Bybrandy [facility] [id number] [place] : 11:11:00 0212 [facility] Group Results Test Description Test Time Test Comments [...] U/L 45-120 N code = ALKP) PROTHROMBIN [id number] 06:17:00 Test Item Value Reference Range Interpretation Comments PROTHROMBIN TIME 14.0 SECONDS 10.3-12.9 H PATIENT (test code = PTP) INTERNATIONAL 1.23 INR UNIT 0.9-1.11 H The INR is us eful only NORMAL RATIO (test for monit oring code = INR) anticoagulant therapy.It may be unreliable in t he initial phase o f antigoagulation and in unstable patien ts. Indication for Anticoagulation Recommended INR 1. Prevention of v enous thomboembolism 2.0-3.0in high- risk patients; treat ment of venousthrombosi s and pulmonary embol ism aftera course o f heparin; preven tion of systemicembolis m in a variety of cond itions, including atria l fibrillation an d prothetic tissu e heart valves, 2. Pros thetic mechanical hear t valves; 2.5-3.5recurren t systemic emboli sm. THROMBOPLASTIN TIME [id number] 06:17:00 Test Item Value Reference Range Interpretation Comments THROMBOPLASTIN TIME 26.2 SECONDS 23.8-34.8 N INTERPRE TATIVE PARTIAL (test code = : erapeutic PTT) range: Unfractionated heparin:55 - 80 seconds Argatroban:1.5 to 3 times the basel ine PTT CBC W/AUTO [id number] 06:10:00 Test Item Value Reference Range Interpretation [...] 0.04 x10 3/uL 0.0-0.20 N CBC W/AUTO [id number] 06:10:00 Test Item Value Reference Range Interpretation [...]
[2022-05-07 10:28] LABS: Absolute Lymphocytes (CBC) 1.6 K/uL (0.7-4.9); MCV 111.7 fL (80-100); RBC Red Blood Cell Count 1.79 M/uL (4.33-5.43)
[2022-05-07 10:42] LABS: Albumin 4.1 g/dL (3.4-5.0); Bilirubin Total 0.9 mg/dL (0.2-1.0); Potassium 4.1 mmol/L (3.5-5.1); Protein, Total 7.7 g/dL (6.4-8.2)
[2022-05-07] MEDS ORDERED: NA CHLORIDE 0.9% 250 ML ONE (11:27)
[2022-05-07 12:13] LABS: Anisocytosis 3+; Blood Morphology Comment NOTED (NOT SEEN); Platelet Estimate ADEQ; Platelets, Giant 1+; White Blood Cell Scan OK (OK)
[2022-05-07 12:14] LABS: Hypochromasia 2+; Macrocytosis 2+; Poikilocytosis 2+
[2022-05-07 12:19] LABS: Ovalocytes 1+; Target Cells 1+; Teardrop Cell 1+
--- NOTE | 2022-05-07 14:47 | ER ---
Nurse's Notes [facility] Name: Sohail Bauer Sr Age: 72 yrs Sex: Male : 1950 Arrival Date: 05/07/2022 Time: 09:48 Bed Treatment Private MD: Diagnosis: Anemia, unspecified;Weakness Presentation: 05/07 09:52 Chief complaint: Patient states: needs blood transfusion. Pt normally sees Dr. Woods and aa5 receives blood transfusions outpatient, Dr. Woods currently out of town. 09:52 Coronavirus screen: At this time, the client does not indicate any symptoms associated aa5 with coronavirus-19. Ebola Screen: Patient denies travel to an Ebola-affected area in the 21 days before illness onset. Initial Sepsis Screen: Does the patient meet any 2 criteria? No. Patient's initial sepsis screen is negative. Does the patient have a suspected source of infection? No. Patient's initial sepsis screen is negative. Risk Assessment: Do you want to hurt yourself or someone else? Patient reports no desire to harm self or others. Onset of symptoms was May 07, 2022. 09:52 Acuity: ANGÉLICA 3 aa5 09:52 Method Of Arrival: Ambulatory aa5 Historical: - Allergies: 10:04 No Known Allergies; aa5 - PMHx: 10:03 Gout; Hyperlipidemia; Hypertension; aa5 - PSHx: 10:03 heart stent x1; aa5 Screenin:24 Abuse screen: Denies threats or abuse. Denies injuries from another. Nutritional iw screening: No deficits noted. Tuberculosis screening: No symptoms or risk factors identified. Fall Risk IV access (20 points). Assessment: 11:24 Reassessment: Patient appears in no apparent distress at this time. Patient and/or iw family updated on plan of care and expected duration. Pain level reassessed. Patient is alert, oriented x 3, equal unlabored respirations, skin warm/dry/pink. 11:50 Reassessment: 1st blood transfusion started at 1150, consent form was signed , pt in iw NAD, transfusion started at 50 ml/hr. 12:45 Reassessment: Patient appears in no apparent distress at this time. Patient and/or iw family updated on plan of care and expected duration. Pain level reassessed. Patient is alert, oriented x 3, equal unlabored respirations, skin warm/dry/pink. Patient denies pain at this time. 14:30 Reassessment: 2nd unit of blood started now, NAD, VSS. iw 16:25 Reassessment: Patient appears in no apparent distress at this time. Patient and/or iw family updated on plan of care and expected duration. Pain level reassessed. Patient is alert, oriented x 3, equal unlabored respirations, skin warm/dry/pink. 2nd blood transfusion complete, VSS, NAD. Vital Signs: 09:52 BP 157 / 84; Pulse 72; Resp 16 S; Temp 98.4(TE); Pulse Ox 97% on R/A; aa5 12:57 BP 161 / 84; Pulse 77; Resp 19; Temp 97.4; Pulse Ox 99% on R/A; Pain 0/10; iw 16:31 BP 172 / 89; Pulse 74; Resp 16; Pulse Ox 98% on R/A; iw ED Course: 09:48 Patient arrived in ED. rg4 09:52 Jeremiah Moss MD is Attending Physician. kirill 09:52 Arm band placed on. aa5 10:03 Triage completed. aa5 10:15 Bb Add On Sent. mb7 10:15 Type And Screen Sent. mb7 10:15 Comprehensive Metabolic Panel Sent. mb7 10:15 CBC with Diff Sent. mb7 10:15 Inserted saline lock: 18 gauge in left antecubital area, using aseptic technique. Blood mb7 collected. 10:33 Ashley Brunson, RN is Primary Nurse. iw 14:45 Liliane Moy MD is Referral Physician. kirill 16:29 No provider procedures requiring assistance completed. IV discontinued, intact, iw bleeding controlled, No redness/swelling at site. Pressure dressing applied. Administered Medications: No medications were administered Outcome: 14:46 Discharge ordered by . kirill 16:31 Patient left the ED. iw Signatures: Jeremiah Moss MD MD cha Williams, Irene, RN RN Maylin Zuniga RN RN aa5 Garcia, Rubi rg4 Rosalinda Lam mb7
--- NOTE | 2022-05-07 14:47 | EDPHYS ---
Physician Documentation [facility] Name: Sohail Bauer Sr Age: 72 yrs Sex: Male : 1950 Arrival Date: 05/07/2022 Time: 09:48 Bed Treatment Private MD: ED Physician Jeremiah Moss HPI: 05/07 14:41 This 72 yrs old Black Male presents to ER via Ambulatory with complaints of Abnormal kirill Lab Results. 14:41 HGB LOW , NEEDS TRANSFUSION, NO HX OF GI BLEED. Onset: The symptoms/episode kirill began/occurred 3 day(s) ago. Severity of symptoms: At their worst the symptoms were mild in the emergency department the symptoms are unchanged. The patient has experienced similar episodes in the past, several times. Historical: - Allergies: 10:04 No Known Allergies; aa5 - PMHx: 10:03 Gout; Hyperlipidemia; Hypertension; aa5 - PSHx: 10:03 heart stent x1; aa5 ROS: 14:42 Constitutional: Negative for fever, chills, and weight loss, Eyes: Negative for injury, kirill pain, redness, and discharge, ENT: Negative for injury, pain, and discharge, Neck: Negative for injury, pain, and swelling, Cardiovascular: Negative for chest pain, palpitations, and edema, Respiratory: Negative for shortness of breath, cough, wheezing, and pleuritic chest pain, Abdomen/GI: Negative for abdominal pain, nausea, vomiting, diarrhea, and constipation, Back: Negative for injury and pain, : Negative for injury, bleeding, discharge, and swelling, MS/Extremity: Negative for injury and deformity, Skin: Negative for injury, rash, and discoloration, Neuro: Negative for headache, weakness, numbness, tingling, and seizure, Psych: Negative for depression, anxiety, suicide ideation, homicidal ideation, and hallucinations, Allergy/Immunology: Negative for hives, rash, and allergies, Endocrine: Negative for neck swelling, polydipsia, polyuria, polyphagia, and marked weight changes, Hematologic/Lymphatic: Negative for swollen nodes, abnormal bleeding, and unusual bruising. Exam: 14:42 Constitutional: This is a well developed, well nourished patient who is awake, alert, kirill and in no acute distress. Head/Face: Normocephalic, atraumatic. Eyes: Pupils equal round and reactive to light, extra-ocular motions intact. Lids and lashes normal. Conjunctiva and sclera are non-icteric and not injected. Cornea within normal limits. Periorbital areas with no swelling, redness, or edema. ENT: Nares patent. No nasal discharge, no septal abnormalities noted. Tympanic membranes are normal and external auditory canals are clear. Oropharynx with no redness, swelling, or masses, exudates, or evidence of obstruction, uvula midline. Mucous membranes moist. Neck: Trachea midline, no thyromegaly or masses palpated, and no cervical lymphadenopathy. Supple, full range of motion without nuchal rigidity, or vertebral point tenderness. No Meningismus. Chest/axilla: Normal chest wall appearance and motion. Nontender with no deformity. No lesions are appreciated. Cardiovascular: Regular rate and rhythm with a normal S1 and S2. No gallops, murmurs, or rubs. Normal PMI, no JVD. No pulse deficits. Respiratory: Lungs have equal breath sounds bilaterally, clear to auscultation and percussion. No rales, rhonchi or wheezes noted. No increased work of breathing, no retractions or nasal flaring. Abdomen/GI: Soft, non-tender, with normal bowel sounds. No distension or tympany. No guarding or rebound. No evidence of tenderness throughout. Back: No spinal tenderness. No costovertebral tenderness. Full range of motion. Male : Normal genitalia with no discharge or lesions. Skin: Warm, dry with normal turgor. Normal color with no rashes, no lesions, and no evidence of cellulitis. MS/ Extremity: Pulses equal, no cyanosis. Neurovascular intact. Full, normal range of motion. Neuro: Awake and alert, GCS 15, oriented to person, place, time, and situation. Cranial nerves II-XII grossly intact. Motor strength 5/5 in all extremities. Sensory grossly intact. Cerebellar exam normal. Normal gait. Psych: Awake, alert, with orientation to person, place and time. Behavior, mood, and affect are within normal limits. 14:42 Abdomen/GI: Inspection: abdomen appears normal, Bowel sounds: normal, Palpation: abdomen is soft and non-tender, Rectal exam: Prostate: normal, rectal tone normal, Stool: guaiac negative, hemorrhoid(s), are not appreciated, mass, is not appreciated, swelling, is not appreciated, tenderness, is not appreciated, fecal impaction, is not appreciated, Liver: no appreciated palpable abnormalities, Hernia: not appreciated. Vital Signs: 09:52 BP 157 / 84; Pulse 72; Resp 16 S; Temp 98.4(TE); Pulse Ox 97% on R/A; aa5 12:57 BP 161 / 84; Pulse 77; Resp 19; Temp 97.4; Pulse Ox 99% on R/A; Pain 0/10; iw 16:31 BP 172 / 89; Pulse 74; Resp 16; Pulse Ox 98% on R/A; iw MDM: 09:52 Patient medically screened. kirill 14:44 Data reviewed: vital signs, nurses notes, lab test result(s). Data interpreted: Cardiac kirill monitor: rate is 77 beats/min, rhythm is regular, Pulse oximetry: on room air is 99 %. Test interpretation: by ED physician or midlevel provider:. Counseling: I had a detailed discussion with the patient and/or guardian regarding: the historical points, exam findings, and any diagnostic results supporting the discharge/admit diagnosis, lab results, the need for outpatient follow up, for definitive care, a family practitioner, an salesperson shoes. 05/07 09:53 Order name: CBC with Diff; Complete Time: 14:29 [facility] 05/07 09:53 Order name: Comprehensive Metabolic Panel; Complete Time: 14:29 [facility] 05/07 09:53 Order name: Type And Screen [facility] 05/07 10:00 Order name: Bb Add On bd 05/07 10:31 Order name: Packed RBC Leukored [facility] 05/07 09:53 Order name: Transfuse; Complete Time: 12:17 [facility] 05/07 09:53 Order name: IV Saline Lock - Large Bore; Complete Time: 10:15 kirill 05/07 10:28 Order name: Diet Heart Healthy; Complete Time: 10:28 aa5 05/07 10:33 Order name: CBC Smear Scan; Complete Time: 14:29 [facility] 05/07 11:52 Order name: Diet Heart Healthy; Complete Time: 11:52 mb7 Administered Medications: No medications were administered Disposition Summary: 05/07/22 14:46 Discharge Ordered Location: Home kirill Problem: new kirill Symptoms: have improved kirill Condition: Stable kirill Diagnosis - Anemia, unspecified kirill - Weakness kirill Followup: kirill - With: Private Physician - When: 2 - 3 days - Reason: Recheck today's complaints, Continuance of care, Re-evaluation by your physician Followup: kirill - With: Liliane Moy MD - When: 2 - 3 days - Reason: Recheck today's complaints, Continuance of care, Re-evaluation by your physician Discharge Instructions: - Discharge Summary Sheet kirill - Blood Transfusion, Adult kirill - Weakness kirill - Fatigue kirill - Near-Syncope, Dzrt-ft-Phkr kirill - Blood Transfusion, Adult, Orgy-rb-Foap kirill - Weakness, Jkik-qh-Tvqi kirill - Blood Transfusion, Adult, Care After kirill Forms: - Medication Reconciliation Form kirill - Thank You Letter kirill - Antibiotic Education kirill - Prescription Opioid Use kirill Signatures: Dispatcher [employer] Jeremiah Campos MD MD cha Calderon, Audri, RN RN aa5
[2022-05-07 18:15] VITALS: TEMP 97.4
[2022-05-07 18:18] VITALS: BP 172/89; O2SAT 98
== END 2022-05-07 16:31 | disposition home or self-care (01) ==
LOC: ER 09:44
PROC: 30233N1 Transfusion of Nonautologous Red Blood Cells into Peripheral Vein, Percutaneous Approach (ICD-10-PCS; principal; 2022-05-07)
DX: D64.9 Anemia, unspecified (principal); I10 Essential (primary) hypertension
CPT/HCPCS: 85025; 36415; 86900; 86850; 86901; 80053; 99283; 36430; P9016 ×2; J7050

== ENCOUNTER 2022-07-13 08:52 | Emergency (ER) | payer OTHER ==
--- OUTSIDE RECORDS SUMMARY | 2022-07-13 08:55 | XMS REPORT | Continuity of Care Document ---
:1950 Author Organization [facility] t Address [address] [place] [address] Care Team Providers Name Role Phone SYLVESTER RAMOS Attending Clinician Unavailable Cayden Patrick Attending Clinician Unavailable JOYCELYN Attending Clinician Unavailable A_Byrd Attending Clinician Unavailable SYLVESTER RAMOS Admitting Clinician Unavailable Cayden Patrick Admitting Clinician Unavailable JOYCELYN Admitting Clinician Unavailable A_Byrd Admitting Clinician Unavailable Payers Payer Name Policy Type Policy Number Effective Date Expiration Date S ourvanessa AETNA MEDICARE HMO [id number] 2019 POS 00:00:00 MED[place]: [id number] 2012 [employer] 00:00:00 AETNA [id number] 2019 00:00:00 [employer] [id number] CARE ADVANTAGE (MEDICARE REPLACEMENT/ADVANTA GE - HMO) [employer] LIFE [id number] INSURANCE COMPANY - PLAN F (MEDICARE SUPPLEMENT) [employer] (MEDICARE [id number] REPLACEMENT PPO) Problems This patient has no known problems. Allergies, Adverse Reactions, Alerts Allergy Allergy Status Severity Reaction(s) Onset Inactive Treating Comm ents Source Name Type Date Date Clinician No Known DA Active U 2019-08 [facility] Allerg 09-14 [facility] 00:00: [facility] 00 [facility] No Known DA Active U 2019-08 [facility] Allerg 09-14 [facility] 00:00: [facility] Social History Social Habit Start Date Stop Date Quantity Comments Source Sex Assigned At [birth year] [facility] kes 00:00:00 00:00:00 [facility] Medications This patient has no known medications. Procedures Procedure Date / Time Performed Performing Clinician [facility] e [id number] 2020-07-15 00:00:00 BURDA.06 [facility] [id number] 2020-07-15 00:00:00 BURDA.06 [facility] Encounters Start End Encounter Admission Attending Care Care Encounter Source Date/Time Date/Time Type Type Clinicians Facility Department ID 2021-06-02 Inpatient ER [facility] Cardiology [id number] [facility] 17:13:42 [facility] 2020-07-14 Inpatient EM Darnell [facility] ADMI [id number] [facility] 21:53:00 Adnan 14 [facility] 2022-03-06 2022-03-06 Outpatient AJ_JESSICA LO [address] [place] 04:17:00 04:17:00 HN 0712 da [facility] Outre h Program 2020-02-17 2020-02-17 Outpatient A_Byrd [facility] [id number] [place] 12:21:00 12:21:00 0624 [facility] 2020-02-17 2020-02-17 Outpatient A_Byrd [facility] [id number] [place] 12:21:00 12:21:00 0713 Medical Group 2019-08-24 2019-08-24 Outpatient A_Bybrandy [facility] [id number] [place] : 11:11:00 0212 Medical Group [...] U/L 45-120 N code = ALKP) PROTHROMBIN [id number] 06:17:00 Test Item Value Reference Range Interpretation [...] 2.5-3.5recurren t systemic emboli sm. THROMBOPLASTIN TIME [id number] 06:17:00 Test Item Value Reference Range Interpretation Comments THROMBOPLASTIN TIME 26.2 SECONDS 23.8-34.8 N INTERPRE TATIVE PARTIAL (test code = : erapeutic PTT) range: Unfractionated heparin:55 - 80 seconds Argatroban:1.5 to 3 times the basel ine PTT CBC W/AUTO [id number] 06:10:00 Test Item Value Reference Range Interpretation [...] 0.04 x10 3/uL 0.0-0.20 N CBC W/AUTO [id number] 06:10:00 Test Item Value Reference Range Interpretation [...]
[2022-07-13] MEDS ORDERED: TRAMADOL HCL 50 MG TAB ONE (09:31)
--- NOTE | 2022-07-13 12:07 | RAD REPORT ---
EXAM DESCRIPTION: US - Extrem Venous W Compress Doug - 07/13/2022 11:47 am CLINICAL HISTORY: PAIN COMPARISON: DVT study 06/04/2022 TECHNIQUE: Real-time sonographic evaluation of the bilateral lower extremity common femoral, superfi cial femoral, popliteal and posterior tibial veins was performed. FINDINGS: Normal compressibility, flow augmentation, phasic flow and spontaneous flow are identified in the left and right lower extremity common femoral, superficial femoral, popliteal and posterior t ibial veins. No intraluminal filling defects seen. Patient has 2 unusual, abnormal hypoechoic collections in each groin. A focal hypoechoic 3.5 centimet er mass is present in the right groin. This is in proximity to the hip joint. There is a larger more complex 7-8 centimeter hypoechoic collection at the left groin. This is also in proximity to the hip joint. No communication to the arterial or venous vessels identifiable. No abnormal internal blood fl ow could be demonstrated on color flow assessment. The patient was not optimal historian. There does not appear to have been any procedure done in eithe r groin. Pseudoaneurysm is not suspected. These do not appear to be larger necrotic lymph nodes. Burs itis or periarticular fluid collections from the hip joints would be possible. Neither was apparently present on the June 04 examination. IMPRESSION: No DVT in either lower extremity. Abnormal fluid or hypoechoic collections are present in each groin possibly originating from the hip joints are adjacent bursa. Pseudoaneurysm, abscess or necrotic lymph node etiologies not suspected.
--- NOTE | 2022-07-13 12:11 | ER ---
Nurse's Notes [facility] Name: Sohail Bauer Age: 72 yrs Sex: Male : 1950 Arrival Date: 07/13/2022 Time: 08:56 Bed 7 Private MD: Diagnosis: Peripheral Edema ;Gout Presentation: 07/13 09:24 Chief complaint: Patient states: his feet have been swollen for 4-5 days. Coronavirus mb9 screen: Client denies travel out of the [place] in the last 14 days. Ebola Screen: No symptoms or risks identified at this time. Initial Sepsis Screen: Does the patient meet any 2 criteria? No. Patient's initial sepsis screen is negative. Does the patient have a suspected source of infection? No. Patient's initial sepsis screen is negative. Risk Assessment: Do you want to hurt yourself or someone else? Patient reports no desire to harm self or others. Onset of symptoms was July 09, 2022. 09:24 Method Of Arrival: Ambulatory mb9 09:24 Acuity: ANGÉLICA 3 mb9 Triage Assessment: 09:27 General: Appears in no apparent distress. comfortable, Behavior is calm, cooperative, mb9 appropriate for age. Pain: Complains of pain in right foot and left foot Pain currently is 10 out of 10 on a pain scale. Quality of pain is described as aching. Historical: - Allergies: 09:26 No Known Allergies; mb9 - Home Meds: 09:26 atorvastatin 20 mg Oral tab 1 tab once daily [Active]; metoprolol tartrate 50 mg Oral mb9 tab 1 tab once daily [Active]; lisinopril 10 mg Oral tab 1 tab once daily [Active]; apixaban 2.5 mg Oral tab 1 tab 2 times per day [Active]; - PMHx: 09:26 Gout; Hyperlipidemia; Hypertension; mb9 - PSHx: 09:26 heart stent x1; mb9 - Immunization history:: Adult Immunizations up to date. - Social history:: Smoking status: Patient/guardian denies using tobacco. Screenin:15 Abuse screen: Denies threats or abuse. Nutritional screening: No deficits noted. mb9 Tuberculosis screening: No symptoms or risk factors identified. Fall Risk None identified. Assessment: 09:46 General: Appears in no apparent distress. comfortable, Behavior is calm, cooperative, mb9 appropriate for age. Pain: Complains of pain in right foot and left foot Pain does not radiate. Pain currently is 10 out of 10 on a pain scale. Quality of pain is described as aching, Pain began 2-3 days ago. Neuro: Level of Consciousness is awake, alert, obeys commands, Oriented to person, place, time, situation, Appropriate for age. Cardiovascular: Heart tones S1 S2 present Rhythm is regular. Cardiovascular: Capillary refill < 3 seconds Edema is 1+ to left ankle, left foot, left toes, right ankle, right foot and right toes. Respiratory: Airway is patent Respiratory effort is even, unlabored, Respiratory pattern is regular, symmetrical, Breath sounds with wheezes in right lower lobe and right posterior lower lobe. GI: Abdomen is flat, Bowel sounds present X 4 quads. Abd is soft and non tender X 4 quads. : No signs and/or symptoms were reported regarding the genitourinary system. EENT: No signs and/or symptoms were reported regarding the EENT system. Derm: Musculoskeletal: Range of motion: intact in all extremities. 10:37 Reassessment: Patient denies pain at this time. mb9 11:15 General: Appears in no apparent distress. comfortable. Pain: Denies pain. Neuro: Level mb9 of Consciousness is awake, alert, obeys commands, Oriented to person, place, time, situation, Appropriate for age. Cardiovascular: Rhythm is regular. Respiratory: Airway is patent Respiratory effort is even, unlabored, Respiratory pattern is regular, symmetrical. 11:21 Reassessment: pt taken to ultrasound via wheelchair. mb9 12:59 Pain: Denies pain. Neuro: Level of Consciousness is awake, alert, obeys commands, mb9 Oriented to person, place, time, situation, Appropriate for age. Cardiovascular: Rhythm is regular. Respiratory: Airway is patent. Derm: Skin is dry, Skin is normal, Skin temperature is warm. Vital Signs: 09:24 BP 180 / 88; Pulse 88; Resp 16; Temp 97.5; Pulse Ox 100% on R/A; Weight 72.57 kg; mb9 Height 6 ft. 2 in. (187.96 cm); Pain 06/04; 09:49 BP 174 / 97; Pulse 84; Resp 18; Pulse Ox 100% on R/A; mb9 10:36 BP 177 / 95; Pulse 63; Resp 16; Pulse Ox 98% on R/A; mb9 13:00 BP 165 / 90; Pulse 86; Resp 16; Pulse Ox 100% on R/A; mb9 09:24 Body Mass Index 20.54 (72.57 kg, 187.96 cm) mb9 ED Course: 08:56 Patient arrived in ED. as 09:13 Ernesto Persaud PA is PHCP. [facility] 09:13 Jeremiah Moss MD is Attending Physician. jmm 09:13 Arm band placed on. mb9 09:13 Bed in low position. Call light in reach. Side rails up X 1. mb9 09:15 Rosalinda Lam, RN is Primary Nurse. mb9 09:26 Triage completed. mb9 11:49 US Extremity Venous W Compression Doug In Process Unspecified. EDMS 13:00 No provider procedures requiring assistance completed. Patient did not have IV access mb9 during this emergency room visit. Administered Medications: 09:25 Drug: traMADol 50 mg Route: PO; mb9 11:16 Follow up: Response: No adverse reaction mb9 Medication: 13:00 VIS not applicable for this client. mb9 Outcome: 12:10 Discharge ordered by . [facility] 13:00 Discharged to home ambulatory. mb9 13:00 Condition: stable 13:00 Discharge instructions given to patient, Instructed on discharge instructions, follow up and referral plans. Demonstrated understanding of instructions, follow-up care, medications, Prescriptions given X 2. 13:01 Patient left the ED. mb9 Signatures: Dispatcher [employer] EDDC Ernesto Persaud PA PA jmm Martinez, Amelia as Breneman, Mary Beth, RN RN mb9 Corrections: (The following items were deleted from the chart) 11:16 11:15 Derm: mb9 mb9
--- NOTE | 2022-07-13 12:11 | EDPHYS ---
Physician Documentation [facility] Name: Sohail Bauer Age: 72 yrs Sex: Male : 1950 Arrival Date: 07/13/2022 Time: 08:56 Bed 7 Private MD: ED Physician Jeremiah Moss HPI: 07/13 09:16 This 72 yrs old Black Male presents to ER via Ambulatory with complaints of Feet jmm Swelling. 09:16 The patient presents with swelling. This is a 72 year old male that presents to the ED jmm with complaints of lower extremity swelling, pain, mainly to the ankles bilaterally. Denies chest pain, denies shortness of breath. . Historical: - Allergies: 09:26 No Known Allergies; mb9 - Home Meds: 09:26 atorvastatin 20 mg Oral tab 1 tab once daily [Active]; metoprolol tartrate 50 mg Oral mb9 tab 1 tab once daily [Active]; lisinopril 10 mg Oral tab 1 tab once daily [Active]; apixaban 2.5 mg Oral tab 1 tab 2 times per day [Active]; - PMHx: 09:26 Gout; Hyperlipidemia; Hypertension; mb9 - PSHx: 09:26 heart stent x1; mb9 - Immunization history:: Adult Immunizations up to date. - Social history:: Smoking status: Patient/guardian denies using tobacco. ROS: 09:16 Constitutional: Negative for fever, chills, and weight loss, Cardiovascular: Negative jmm for chest pain, palpitations, and edema, Respiratory: Negative for shortness of breath, cough, wheezing, and pleuritic chest pain. 09:16 MS/extremity: Positive for pain, swelling. 09:16 All other systems are negative. Exam: 09:16 Constitutional: This is a well developed, well nourished patient who is awake, alert, jmm and in no acute distress. Head/Face: atraumatic. Eyes: EOMI, no conjunctival erythema appreciated ENT: Moist Mucus Membranes Neck: Trachea midline, Supple Chest/axilla: Normal chest wall appearance and motion. Cardiovascular: Regular rate and rhythm. No edema appreciated Respiratory: Normal respirations, no respiratory distress appreciated Abdomen/GI: Non distended Back: Normal ROM Skin: General appearance color normal 09:16 Musculoskeletal/extremity: swelling noted to the lower extremities bilaterally, compartments are soft, malleolus of the right ankle ttp, full dorsalis pulse, NVI. 09:16 Skin: Appearance: Color: normal in color. 09:16 Neuro: Orientation: is normal, Mentation: is normal, Memory: is normal. 09:16 Psych: Behavior/mood is pleasant, cooperative. Vital Signs: 09:24 BP 180 / 88; Pulse 88; Resp 16; Temp 97.5; Pulse Ox 100% on R/A; Weight 72.57 kg; mb9 Height 6 ft. 2 in. (187.96 cm); Pain 10/10; 09:49 BP 174 / 97; Pulse 84; Resp 18; Pulse Ox 100% on R/A; mb9 10:36 BP 177 / 95; Pulse 63; Resp 16; Pulse Ox 98% on R/A; mb9 13:00 BP 165 / 90; Pulse 86; Resp 16; Pulse Ox 100% on R/A; mb9 09:24 Body Mass Index 20.54 (72.57 kg, 187.96 cm) 9 MDM: 09:16 Patient medically screened. [facility] 12:08 Data reviewed: vital signs, nurses notes. [facility] 12:08 Counseling: I had a detailed discussion with the patient and/or guardian regarding: the [facility] historical points, exam findings, and any diagnostic results supporting the discharge/admit diagnosis, radiology results, the need for outpatient follow up, to return to the emergency department if symptoms worsen or persist or if there are any questions or concerns that arise at home. ED course: US is negative. Advised to follow up with his pcp and otherwise given strict return precautions. patient understood and agrees with the plan of care. . 07/13 09:22 Order name: US Extremity Venous W Compression Doug; Complete Time: 12:08 [facility] Administered Medications: 09:25 Drug: traMADol 50 mg Route: PO; 9 11:16 Follow up: Response: No adverse reaction 9 Disposition Summary: 07/13/22 12:10 Discharge Ordered Location: Home elizabeth Condition: Stable araceli Diagnosis - Peripheral Edema elizabethm - Gout elizabeth Followup: araceli - With: Private Physician - When: 2 - 3 days - Reason: Recheck today's complaints, Continuance of care, Re-evaluation by your physician Discharge Instructions: - Discharge Summary Sheet araceli - Gout elizabethm - Peripheral Edema [facility] Forms: - Medication Reconciliation Form [facility] - Thank You Letter [facility] - Antibiotic Education [facility] - Prescription Opioid Use [facility] Prescriptions: - Medrol (Aaron) 4 mg Oral Tablets, Dose Pack - take 1 tablet by ORAL route as directed - follow package instructions; 1 jmm packet; Refills: 0, Product Selection Permitted - orphenadrine citrate 100 mg Oral Tablet Sustained Release - take 1 tablet by ORAL route 2 times per day As needed; 20 tablet; Refills: 0, [facility] Product Selection Permitted Addendum: 07/15/2022 13:31 Co-signature as Attending Physician, Jeremiah Moss MD I agree with the assessment and c day plan of care. Signatures: Dispatcher [employer] EDJeremiah Rea MD MD cha Mickail, Joel, PA PA jmm Breneman, Mary Beth, RN RN mb9
[2022-07-13 13:07] VITALS: TEMP 97.5
[2022-07-13 13:10] VITALS: BP 165/90; O2SAT 100
== END 2022-07-13 13:01 | disposition home or self-care (01) ==
LOC: ER 08:52
DX: R60.9 Edema, unspecified (principal); M10.9 Gout, unspecified; I10 Essential (primary) hypertension; E78.5 Hyperlipidemia, unspecified; Z95.818 Presence of other cardiac implants and grafts
CPT/HCPCS: 93970; 99283

== ENCOUNTER 2022-08-16 12:48 | Emergency (ER) | payer OTHER ==
--- OUTSIDE RECORDS SUMMARY | 2022-08-16 12:53 | XMS REPORT | Continuity of Care Document ---
:1950 Author Organization [facility] t Address [address] [place] [address] Care Team Providers Name Role Phone SYLVESTER RAMOS Attending Clinician Unavailable Cayden Patrick Attending Clinician Unavailable JOYCELYN Attending Clinician Unavailable A_Byrd Attending Clinician Unavailable SYLVESTER RAMOS Admitting Clinician Unavailable Cayden Patrick Admitting Clinician Unavailable JOYCELYN Admitting Clinician Unavailable A_Byrd Admitting Clinician Unavailable Payers Payer Name Policy Type Policy Number Effective Date Expiration Date S ourvanessa [employer] MEDICARE HMO [id number] 2019 POS 00:00:00 MEDICARE B-[place]: [id number] 2012 [employer] 00:00:00 [employer] [id number] 2019 00:00:00 [employer] [id number] CARE ADVANTAGE (MEDICARE REPLACEMENT/ADVANTA GE - HMO) [employer] LIFE [id number] INSURANCE COMPANY - PLAN F (MEDICARE SUPPLEMENT) [employer] (MEDICARE [id number] REPLACEMENT PPO) Problems This patient has no known problems. Allergies, Adverse Reactions, Alerts Allergy Allergy Status Severity Reaction(s) Onset Inactive Treating Comm ents Source Name Type Date Date Clinician No Known DA Active U 2019-08 [facility] Allerg 09-14 [facility] 00[facility]00: [facility] 00 [facility] No Known DA Active U 2019-08 [facility] Allerg 09-14 [facility] 00:00: [facility] Social History Social Habit Start Date Stop Date Quantity Comments Source Sex Assigned At [birth year] [facility] kes 00:00:00 00:00:00 [facility] Medications This patient has no known medications. Procedures Procedure Date / Time Performed Performing Clinician [facility] e [id number] 2020-07-15 00:00:00 BURDA.[email or web address] [facility] [id number] 2020-07-15 00:00:00 BURDA.[email or web address] [facility] Encounters Start End Encounter Admission Attending Care Care Encounter Source Date/Time Date/Time Type Type Clinicians Facility Department ID 2021-06-[address] [facility] Cardiology [id number] 95 [facility] 17:13:42 [facility] 2020-07-14 Inpatient EM Darnell [facility] ADMI [id number] [facility] 21:53:00 Adnan 14 [facility] 2022-03-06 2022-03-06 Outpatient AJ_JESSICA LO [id number] [place] 04:17:00 04:17:00 HN 0712 da [facility] Outre h Program 2020-02-17 2020-02-17 Outpatient A_Byrd [facility] [id number] [place] 12:21:00 12:21:00 0624 [facility] 2020-02-17 2020-02-17 Outpatient A_Byrd [facility] [id number] [place] 12:21:00 12:21:00 0713 Medical Group 2019-08-24 2019-08-24 Outpatient A_Bybrandy [facility] [id number] [place] : 11:11:00 0212 Medical Group [...] U/L 45-120 N code = ALKP) PROTHROMBIN [id number] 06:17:00 Test Item Value Reference Range Interpretation [...] 2.5-3.5recurren t systemic emboli sm. THROMBOPLASTIN TIME [id number] 06:17:00 Test Item Value Reference Range Interpretation Comments THROMBOPLASTIN TIME 26.2 SECONDS 23.8-34.8 N INTERPRE TATIVE PARTIAL (test code = : erapeutic PTT) range: Unfractionated heparin:55 - 80 seconds Argatroban:1.5 to 3 times the basel ine PTT CBC W/AUTO [id number] 06:10:00 Test Item Value Reference Range Interpretation [...] 0.04 x10 3/uL 0.0-0.20 N CBC W/AUTO [id number] 06:10:00 Test Item Value Reference Range Interpretation [...]
[2022-08-16] MEDS ORDERED: TRAMADOL HCL 50 MG TAB ONE (13:30)
--- NOTE | 2022-08-16 13:51 | RAD REPORT ---
EXAM DESCRIPTION: US - Extrem Venous W Compress Doug - 08/16/2022 1:44 pm CLINICAL HISTORY: PAIN COMPARISON: Extrem Venous W Compress Doug dated 07/13/2022 TECHNIQUE: Real-time sonographic evaluation of the lower extremity deep venous systems was performed using color Doppler, grayscale, and compression. FINDINGS: Bilateral lower extremities. Normal compressibility, flow augmentation, phasic flow and spontaneous flow is identified in both the left and right lower extremity deep venous systems. No intraluminal filling defects seen. Fluid collections present in the bilateral inguinal regions. IMPRESSION: No DVT in either lower extremity. Bilateral groin fluid collections of uncertain etiolog y but also present on the prior ultrasound from 07/13/2022. It could be fluid within the bursa or flu id trapped in the inguinal canals.
--- NOTE | 2022-08-16 13:54 | EDPHYS ---
Physician Documentation [facility] Name: Sohail Bauer Age: 72 yrs Sex: Male : 1950 Arrival Date: 08/16/2022 Time: 12:56 Bed 20 Private MD: ED Physician Lenny Ramires HPI: 08/16 14:37 This 72 yrs old Black Male presents to ER via Ambulatory with complaints of Knee Pain, kb Foot Pain. 14:38 The patient presents with pain, swelling. The complaints affect the anterior aspect of kb right ankle and right knee and anterior aspect of left ankle and left knee. Context: The problem was sustained at home, resulted from a chronic condition, the patient can fully bear weight, uses a walker. Onset: The symptoms/episode began/occurred 4 day(s) ago. Modifying factors: The symptoms are alleviated by nothing. the symptoms are aggravated by movement. Associated signs and symptoms: Pertinent positives: swelling, Pertinent negatives calf tenderness, fever, nausea, numbness, rash, tingling, vomiting, warmth, weakness. Treatment prior to arrival includes: no previous treatment. Severity of symptoms: At their worst the symptoms were moderate, in the emergency department the symptoms are unchanged. The patient has not experienced similar symptoms in the past. The patient has not recently seen a physician. Pt reports knee and ankle pain and swelling for 4 days. States he has gout and this has happened many times in the past. States he just needs some gout medication. . Historical: - PMHx: 13:11 Gout; Hyperlipidemia; Hypertension; hb - PSHx: 13:11 heart stent x1; hb - Immunization history:: Adult Immunizations up to date. - Social history:: Smoking status: unknown. ROS: 14:37 Constitutional: Negative for fever, chills, and weight loss. kb 14:37 MS/extremity: Positive for pain, swelling, of the right knee, anterior aspect of right ankle, left knee and anterior aspect of left ankle. 14:37 All other systems are negative. Exam: 14:37 Constitutional: This is a well developed, well nourished patient who is awake, alert, kb and in no acute distress. Head/Face: Normocephalic, atraumatic. ENT: Moist Mucous membranes Cardiovascular: Regular rate and rhythm with a normal S1 and S2. No gallops, murmurs, or rubs. No pulse deficits. Respiratory: Respirations even and unlabored. No increased work of breathing. Talking in full sentences Abdomen/GI: Soft, non-tender. No distention Skin: Warm, dry with normal turgor. Normal color. Neuro: Awake and alert, GCS 15, oriented to person, place, time, and situation. Moves all extremities. Normal gait. Psych: Awake, alert, with orientation to person, place and time. Behavior, mood, and affect are within normal limits. 14:37 Musculoskeletal/extremity: Extremities: grossly normal except: noted in the anterior aspect of right ankle and right knee and anterior aspect of left ankle and left knee: pain, ROM: no acute changes, Circulation is intact in all extremities. Sensation intact. Weight bearing: can bear weight with assistance only, uses walker. Vital Signs: 13:10 BP 164 / 98; Pulse 65; Resp 16; Temp 98.4; Pulse Ox 97% on R/A; Weight 74.84 kg; Height hb 6 ft. 2 in. (187.96 cm); Pain 5/10; 13:30 BP 159 / 96; Pulse 81; Pulse Ox 96% on R/A; ll1 13:10 Body Mass Index 21.18 (74.84 kg, 187.96 cm) hb MDM: 13:02 Patient medically screened. kb 14:35 Data reviewed: vital signs, nurses notes. Data interpreted: Pulse oximetry: on room air kb is 96 %. Interpretation: normal. Counseling: I had a detailed discussion with the patient and/or guardian regarding: the historical points, exam findings, and any diagnostic results supporting the discharge/admit diagnosis, radiology results, the need for outpatient follow up, a family practitioner, to return to the emergency department if symptoms worsen or persist or if there are any questions or concerns that arise at home. 14:36 ED course: US negative. Pt reports this is a chronic issue and he just needs medication kb for it to get him to the new year when he can see his PCP. 08/16 13:11 Order name: US Extremity Venous W Compression Doug; Complete Time: 13:53 kb Administered Medications: 13:30 Drug: traMADol 50 mg {Note: pain 10/10 rass 0.} Route: PO; ll1 14:03 Follow up: Response: No adverse reaction; Pain is unchanged, physician notified; RASS: ll1 Alert and Calm (0) Disposition: 18:48 Co-signature as Attending Physician, Lenny Ramires MD I agree with the assessment and rt plan of care. Disposition Summary: 08/16/22 13:53 Discharge Ordered Location: Home kb Condition: Stable kb Diagnosis - Gout, unspecified kb Followup: kb - With: Emergency Department - When: As needed - Reason: Worsening of condition Followup: kb - With: Private Physician - When: 2 - 3 days - Reason: Recheck today's complaints, Continuance of care, Re-evaluation by your physician Discharge Instructions: - Discharge Summary Sheet kb - Gout, [id number] kb Forms: - Medication Reconciliation Form kb - Thank You Letter kb - Antibiotic Education kb - Prescription Opioid Use kb Prescriptions: - indomethacin 25 mg Oral capsule - take 1 capsule by ORAL route 3 times per day As needed with food; 21 capsule; kb Refills: 0, Product Selection Permitted Signatures: Dispatcher [employer] EDGemma Cox, SHAGGY PHELANP-Anna Jay, RN RN Donya Gilmore RN RN ll1 Lenny Ramires MD MD rt
--- NOTE | 2022-08-16 13:54 | ER ---
Nurse's Notes [facility] Name: Sohail Bauer Age: 72 yrs Sex: Male : 1950 Arrival Date: 08/16/2022 Time: 12:56 Bed 20 Private MD: Diagnosis: Gout, unspecified Presentation: 08/16 13:10 Chief complaint: Patient states: "I can't find a primary care doctor and I am out of my hb fluid pill again, my knees and my feet hurt.". Coronavirus screen: At this time, the client does not indicate any symptoms associated with coronavirus-19. Ebola Screen: No symptoms or risks identified at this time. Initial Sepsis Screen: Does the patient meet any 2 criteria? No. Patient's initial sepsis screen is negative. Does the patient have a suspected source of infection? No. Patient's initial sepsis screen is negative. Risk Assessment: Do you want to hurt yourself or someone else? Patient reports no desire to harm self or others. Onset of symptoms was August 16, 2022. 13:10 Method Of Arrival: Ambulatory hb 13:10 Acuity: ANGÉLICA 4 hb Historical: - PMHx: 13:11 Gout; Hyperlipidemia; Hypertension; hb - PSHx: 13:11 heart stent x1; hb - Immunization history:: Adult Immunizations up to date. - Social history:: Smoking status: unknown. Screenin:31 Abuse screen: Denies threats or abuse. Nutritional screening: No deficits noted. ll1 Tuberculosis screening: No symptoms or risk factors identified. 13:33 [facility] ED Fall Risk Assessment (Adult) Impaired Gait Yes (1 pt) Mobility Assist ll1 Device Used Yes (1 pt) Score/Fall Risk Level 0 - 2 = Low Risk Oriented to surroundings, Maintained a safe environment, Educated pt \\T\\ family on fall prevention, incl call for assistance when getting out of bed, Hourly rounding (assess needs \\T\\ fall precautionary measures) done. Assessment: 13:30 General: Appears in no apparent distress. Behavior is calm, cooperative, appropriate ll1 for age. Pain: Complains of pain in right leg and left leg Pain currently is 10 out of 10 on a pain scale. Neuro: No deficits noted. Cardiovascular: No deficits noted. Musculoskeletal: Circulation, motion, and sensation intact. Capillary refill < 3 seconds, Reports pain in right leg and left leg. 14:02 Reassessment: No changes from previously documented assessment. Patient and/or family ll1 updated on plan of care and expected duration. Pain level reassessed. Patient is alert, oriented x 3, equal unlabored respirations, skin warm/dry/pink. Vital Signs: 13:10 BP 164 / 98; Pulse 65; Resp 16; Temp 98.4; Pulse Ox 97% on R/A; Weight 74.84 kg; Height hb 6 ft. 2 in. (187.96 cm); Pain 5/10; 13:30 BP 159 / 96; Pulse 81; Pulse Ox 96% on R/A; ll1 13:10 Body Mass Index 21.18 (74.84 kg, 187.96 cm) hb ED Course: 12:56 Patient arrived in ED. rg4 13:02 Gemma Ch FNP-C is PHCP. kb 13:02 Lenny Ramires MD is Attending Physician. kb 13:11 Triage completed. hb 13:12 Arm band placed on. hb 13:21 Donya Gilmore, RN is Primary Nurse. ll1 13:31 Patient has correct armband on for positive identification. Bed in low position. Call ll1 light in reach. Client placed on continuous cardiac and pulse oximetry monitoring. NIBP monitoring applied. 13:32 US Extremity Venous W Compression Doug Sent. ll1 13:46 US Extremity Venous W Compression Doug In Process Unspecified. EDMS 14:03 No provider procedures requiring assistance completed. Patient did not have IV access ll1 during this emergency room visit. Administered Medications: 13:30 Drug: traMADol 50 mg {Note: pain 10/10 rass 0.} Route: PO; ll1 14:03 Follow up: Response: No adverse reaction; Pain is unchanged, physician notified; RASS: ll1 Alert and Calm (0) Medication: 13:31 VIS not applicable for this client. ll1 Outcome: 13:53 Discharge ordered by . kb 14:03 Patient left the ED. ll1 14:03 Discharged to home ambulatory. ll1 14:03 Condition: stable 14:03 Discharge instructions given to patient, Instructed on discharge instructions, follow up and referral plans. medication usage, Demonstrated understanding of instructions, follow-up care, medications, Prescriptions given X 1. Signatures: Dispatcher [employer] EDDE Gemma Ch FNP-C FNP-Ckb Anna Chao, RN RN hb Leigh Samuel rg4 Donya Gilmore, RN RN ll1
[2022-08-16 14:08] VITALS: TEMP 98.4
[2022-08-16 14:09] VITALS: BP 159/96; O2SAT 96
== END 2022-08-16 14:03 | disposition home or self-care (01) ==
LOC: ER 12:48
DX: M10.9 Gout, unspecified (principal); I10 Essential (primary) hypertension; Z95.818 Presence of other cardiac implants and grafts
CPT/HCPCS: 93970; 99283

== ENCOUNTER 2022-09-12 08:43 | Emergency (ER) | payer OTHER ==
--- OUTSIDE RECORDS SUMMARY | 2022-09-12 08:48 | XMS REPORT | Continuity of Care Document ---
:1950 Author Organization Formerly [facility] t Address [address] [place] [address] Care Team Providers Name Role Phone SYLVESTER RAMOS Attending Clinician Unavailable Cayden Patrick Attending Clinician Unavailable JOYCELYN Attending Clinician Unavailable A_Byrd Attending Clinician Unavailable SYLVESTER RAMOS Admitting Clinician Unavailable Cayden Patrick Admitting Clinician Unavailable JOYCELYN Admitting Clinician Unavailable A_Byrd Admitting Clinician Unavailable Payers Payer Name Policy Type Policy Number Effective Date Expiration Date S ourvanessa [employer] MEDICARE HMO [id number] 2019 POS 00:00:00 [place]: [id number] 2012 [employer] 00:00:00 [employer] [id number] 2019 00:00:00 [employer] [id number] CARE ADVANTAGE (MEDICARE REPLACEMENT/ADVANTA GE - HMO) [employer] LIFE [id number] INSURANCE COMPANY - PLAN F (MEDICARE SUPPLEMENT) [employer] (MEDICARE [id number] REPLACEMENT PPO) Problems This patient has no known problems. Allergies, Adverse Reactions, Alerts Allergy Allergy Status Severity Reaction(s) Onset Inactive Treating Comm ents Source Name Type Date Date Clinician No Known DA Active U 2019-08 [facility] Allerg 09-14 [facility] 00[facility]00: [facility] 00 [facility] No Known DA Active U 2019-08 [facility] Allerg 09-14 [facility] 00:00: [facility] Social History Social Habit Start Date Stop Date Quantity Comments Source Sex Assigned At [birth year] [facility] kes 00:00:00 00:00:00 [facility] Medications This patient has no known medications. Procedures Procedure Date / Time Performed Performing Clinician [facility] e [id number] 2020-07-15 00:00:00 [email or web address] [facility] [id number] 2020-07-15 00:00:00 [email or web address] [facility] Encounters Start End Encounter Admission Attending Care Care Encounter Source Date/Time Date/Time Type Type Clinicians Facility Department ID 2021-06-02 Inpatient ER [facility] Cardiology [id number] [facility] 17:13:42 [facility] 2020-07-14 Inpatient EM Darnell [facility] ADMI [id number] [facility] 21:53:00 Adnan 14 [facility] 2022-03-06 2022-03-06 Outpatient AJ_JESSICA LO [id number] [place] 04:17:00 04:17:00 HN 0712 da [facility] Outre h Program 2020-02-17 2020-02-17 Outpatient A_Byrd [facility] [id number] [place] 12:21:00 12:21:00 0624 [facility] 2020-02-17 2020-02-17 Outpatient A_Byrd [facility] [id number] [place] 12:21:00 12:21:00 0713 [facility] 2019-08-24 2019-08-24 Outpatient A_Bybrandy [facility] [id number] [place] : 11:11:00 0212 [facility] [...] U/L 45-120 N code = ALKP) PROTHROMBIN [id number] 06:17:00 Test Item Value Reference Range Interpretation [...] 2.5-3.5recurren t systemic emboli sm. THROMBOPLASTIN TIME [id number] 06:17:00 Test Item Value Reference Range Interpretation Comments THROMBOPLASTIN TIME 26.2 SECONDS 23.8-34.8 N INTERPRE TATIVE PARTIAL (test code = : erapeutic PTT) range: Unfractionated heparin:55 - 80 seconds Argatroban:1.5 to 3 times the basel ine PTT CBC W/AUTO [id number] 06:10:00 Test Item Value Reference Range Interpretation [...] 0.04 x10 3/uL 0.0-0.20 N CBC W/AUTO [id number] 06:10:00 Test Item Value Reference Range Interpretation [...]
--- NOTE | 2022-09-12 09:37 | RAD REPORT ---
EXAM DESCRIPTION: RAD - Chest Single View - 09/12/2022 9:28 am CLINICAL HISTORY: SWELLING Chest pain. COMPARISON: Chest Single View dated 07/31/2021 FINDINGS: Portable technique limits examination quality. The lungs are emphysematous but grossly clear. The heart is mildly prominent in size. No displaced fr actures. IMPRESSION: COPD.
--- NOTE | 2022-09-12 10:05 | RAD REPORT ---
EXAM DESCRIPTION: US - Extrem Venous W Compress Doug - 09/12/2022 9:58 am CLINICAL HISTORY: SWELLING Bilateral leg edema and swelling. COMPARISON: Extrem Venous W Compress Doug dated 08/16/2022 TECHNIQUE: Real-time sonographic interrogation of the left and right lower extremity deep venous sys tems was performed. FINDINGS: Normal compressibility, flow augmentation, phasic flow and spontaneous flow is identified in both the left and right lower extremity deep venous systems. Incidental note is made of complex fluid collections in both groin regions, on the left measuring up to 8 cm made on the right measuring up to 7 cm. These are nonspecific. IMPRESSION: No sonographic evidence of left or right lower extremity deep venous thrombosis.
--- NOTE | 2022-09-12 10:40 | ER ---
Nurse's Notes [facility] Name: Sohail Bauer Age: 72 yrs Sex: Male : 1950 Arrival Date: 09/12/2022 Time: 08:48 Bed 14 Private MD: Diagnosis: Edema, unspecified-lower extremity ;Gout, unspecified Presentation: 09/12 08:54 Chief complaint: Patient states: he ran out of medicines, and his feet have swollen up. ap3 patient states this happens every time he runs out of his medicines. patients states he has been out of his medications approx 2 weeks. Coronavirus screen: At this time, the client does not indicate any symptoms associated with coronavirus-19. Ebola Screen: No symptoms or risks identified at this time. Initial Sepsis Screen: Does the patient meet any 2 criteria? No. Patient's initial sepsis screen is negative. Does the patient have a suspected source of infection? No. Patient's initial sepsis screen is negative. Risk Assessment: Do you want to hurt yourself or someone else? Patient reports no desire to harm self or others. Onset of symptoms was September 05, 2022. 08:54 Method Of Arrival: Ambulatory ap3 08:54 Acuity: ANGÉLICA 3 ap3 Triage Assessment: 08:58 General: Appears in no apparent distress. Behavior is cooperative. Pain: Complains of ap3 pain in right foot and left foot. Neuro: Level of Consciousness is awake, alert, obeys commands, Oriented to person, place, time, situation. Cardiovascular: Patient's skin is warm and dry. Respiratory: Airway is patent Respiratory effort is even, unlabored. Musculoskeletal: Swelling present in right foot and left foot. Historical: - PMHx: 10:48 Gout; Hyperlipidemia; Hypertension; ko1 - Immunization history:: Client reports receiving the 2nd dose of the Covid vaccine. - Social history:: Smoking status: Patient denies any tobacco usage or history of. Screenin:58 Abuse screen: Denies threats or abuse. Nutritional screening: No deficits noted. ap3 Tuberculosis screening: No symptoms or risk factors identified. 10:48 [facility] ED Fall Risk Assessment (Adult) History of falling in the last 3 months, ko1 including since admission No falls in past 3 months (0 pts) Confusion or Disorientation No (0 pts) Intoxicated or Sedated No (0 pts) Impaired Gait Yes (1 pt) Mobility Assist Device Used Yes (1 pt) Altered Elimination No (0 pt) Score/Fall Risk Level 0 - 2 = Low Risk Oriented to surroundings, Maintained a safe environment, Educated pt \T\ family on fall prevention, incl call for assistance when getting out of bed, Assessed \T\ reinforced patient's understanding of fall precautions, Provided non-skid footwear, Hourly rounding (assess needs \T\ fall precautionary measures) done, Used ambulatory aids as needed (educated on \T\ assisted with), Used gait belt as appropriate. Assessment: 09:00 General: Appears in no apparent distress. uncomfortable, Behavior is calm, cooperative, ko1 appropriate for age. Pain: Denies pain. Neuro: No deficits noted. Cardiovascular: Parent/caregiver reports patient has had edema in bilateral lower ext. Respiratory: No deficits noted. GI: No deficits noted. : No deficits noted. EENT: No deficits noted. Derm: No deficits noted. Musculoskeletal: No deficits noted. 09:19 Reassessment: XRAY and US at bedside at this time. ss Vital Signs: 08:54 BP 125 / 77; Pulse 88; Resp 18; Temp 97.7; Pulse Ox 96% ; Weight 75.75 kg; Height 6 ft. ap3 2 in. (187.96 cm); 10:49 BP 132 / 74; Pulse 92; Resp 18; Pulse Ox 98% ; ko1 08:54 Body Mass Index 21.44 (75.75 kg, 187.96 cm) ap3 ED Course: 08:48 Patient arrived in ED. mr 08:56 Triage completed. ap3 08:58 Arm band placed on right wrist. ap3 09:00 Leah Batista, RAJAT is Primary Nurse. ko1 09:01 Gemma Ch FNP-C is PHCP. kb 09:01 Jonathan Ibarra MD is Attending Physician. kb 09:29 Chest Single View XRAY In Process Unspecified. EDMS 09:45 US Extremity Venous W Compression Doug In Process Unspecified. EDMS 10:48 Patient has correct armband on for positive identification. Bed in low position. Call ko1 light in reach. Pulse ox on. NIBP on. 10:48 No provider procedures requiring assistance completed. Patient did not have IV access ko1 during this emergency room visit. Administered Medications: No medications were administered Medication: 10:48 VIS not applicable for this client. ko1 Outcome: 10:40 Discharge ordered by . lis 10:48 Discharged to home ambulatory. ko1 10:48 Condition: good 10:48 Discharge instructions given to patient, Instructed on discharge instructions, follow up and referral plans. medication usage, Demonstrated understanding of instructions, follow-up care, medications, Prescriptions given X 2. 10:54 Patient left the ED. ko1 Signatures: Dispatcher [employer] EDOR Gemma Ch, VARGAS-Josemanuel RESTUARANT CREW WORKER-Rosalinda Aleman mr Sadia Faith, RN RN Francie Martinez RN RN ap3 Leah Batista RN RN ko1
--- NOTE | 2022-09-12 10:40 | EDPHYS ---
Physician Documentation [facility] Name: Sohail Bauer Age: 72 yrs Sex: Male : 1950 Arrival Date: 09/12/2022 Time: 08:48 Bed 14 Private MD: ED Physician Jonathan Ibarra HPI: 09/12 15:20 This 72 yrs old Black Male presents to ER via Ambulatory with complaints of Feet kb Swelling. 15:20 The patient presents with swelling. The complaints affect the right leg and left leg. kb The patient has experienced similar episodes in the past. The patient has not recently seen a physician. 15:21 Context: The problem was sustained at home, resulted from a chronic condition, the kb patient can fully bear weight, the patient is able to ambulate. Onset: The symptoms/episode began/occurred 2 week(s) ago. Modifying factors: The symptoms are alleviated by nothing. the symptoms are aggravated by nothing. Associated signs and symptoms: Pertinent positives: swelling, Pertinent negatives calf tenderness, fever, nausea, numbness, rash, tingling, vomiting, warmth, weakness. Treatment prior to arrival includes: no previous treatment. Severity of symptoms: At their worst the symptoms were moderate, in the emergency department the symptoms are unchanged. Pt reports lower extremity swelling for 2 weeks. States this happens every time he runs out of his medication. States he needs to see his PCP to get his medications, but he hasn't been able to go yet. Denies chest pain, shortness of breath. Reports steroids and indomethacin make the swelling go away. Historical: - PMHx: 10:48 Gout; Hyperlipidemia; Hypertension; ko1 - Immunization history:: Client reports receiving the 2nd dose of the Covid vaccine. - Social history:: Smoking status: Patient denies any tobacco usage or history of. ROS: 15:21 Constitutional: Negative for fever, chills, and weight loss. kb 15:21 MS/extremity: Positive for swelling, of the right leg and left leg. 15:21 All other systems are negative. Exam: 15:21 Constitutional: This is a well developed, well nourished patient who is awake, alert, kb and in no acute distress. Head/Face: Normocephalic, atraumatic. ENT: Moist Mucous membranes Cardiovascular: Regular rate and rhythm with a normal S1 and S2. No gallops, murmurs, or rubs. No pulse deficits. Respiratory: Respirations even and unlabored. No increased work of breathing. Talking in full sentences Abdomen/GI: Soft, non-tender. No distention Skin: Warm, dry with normal turgor. Normal color. Neuro: Awake and alert, GCS 15, oriented to person, place, time, and situation. Moves all extremities. Normal gait. Psych: Awake, alert, with orientation to person, place and time. Behavior, mood, and affect are within normal limits. 15:21 Musculoskeletal/extremity: Extremities: grossly normal except: noted in the right leg and left leg: swelling, ROM: intact in all extremities, Circulation is intact in all extremities. Sensation intact. Weight bearing: able to fully bear weight. Vital Signs: 08:54 BP 125 / 77; Pulse 88; Resp 18; Temp 97.7; Pulse Ox 96% ; Weight 75.75 kg; Height 6 ft. ap3 2 in. (187.96 cm); 10:49 BP 132 / 74; Pulse 92; Resp 18; Pulse Ox 98% ; ko1 08:54 Body Mass Index 21.44 (75.75 kg, 187.96 cm) ap3 MDM: 09:01 Patient medically screened. kb 15:24 Data reviewed: vital signs, nurses notes. Consideration of Admission/Observation kb Escalation of care including admission/observation considered. Test considered but Not performed: Other Details CBC, CMP, BNP considered. Care significantly affected by the following chronic conditions: gout, peripheral edema. Counseling: I had a detailed discussion with the patient and/or guardian regarding: the historical points, exam findings, and any diagnostic results supporting the discharge/admit diagnosis, radiology results, the need for outpatient follow up, a family practitioner, to return to the emergency department if symptoms worsen or persist or if there are any questions or concerns that arise at home. ED course: Chest x-ray showing no acute findings, no shortness of breath reported, O2 sat 98% on room air with no increased work of breathing. Pt will follow up with PCP for outpatient treatment. 09/12 09:07 Order name: US Extremity Venous W Compression Doug; Complete Time: 10:39 kb 09/12 09:07 Order name: Chest Single View XRAY; Complete Time: 09:41 kb Administered Medications: No medications were administered Disposition: 16:17 Co-signature as Attending Physician, Jonathan Ibarra MD I agree with the assessment and kdr plan of care. Disposition Summary: 09/12/22 10:40 Discharge Ordered Location: Home kb Condition: Stable kb Diagnosis - Edema, unspecified - lower extremity kb - Gout, unspecified kb Followup: kb - With: Emergency Department - When: As needed - Reason: Worsening of condition Followup: kb - With: Private Physician - When: 2 - 3 days - Reason: Recheck today's complaints, Continuance of care, Re-evaluation by your physician Discharge Instructions: - Discharge Summary Sheet kb - Gout, [id number] kb - Peripheral Edema kb Forms: - Medication Reconciliation Form kb - Thank You Letter kb - Antibiotic Education kb - Prescription Opioid Use kb Prescriptions: - indomethacin 50 mg Oral capsule - take 1 capsule by ORAL route 3 times per day As needed with food; 30 capsule; kb Refills: 0, Product Selection Permitted - Medrol (Aaron) 4 mg Oral Tablets, Dose Pack - take 1 tablet by ORAL route as directed - follow package instructions; 1 kb packet; Refills: 0, Product Selection Permitted Signatures: Dispatcher [employer] EDMS Gemma Ch, CONCRETE PIPE MACHINE OPERATOR-C CONCRETE PIPE MACHINE OPERATOR-Jonathan Vaca MD MD kdr Prokisch, Amanda RN RN ap3 Leah Batista RN RN ko1
[2022-09-12 11:03] VITALS: TEMP 97.7
[2022-09-12 11:05] VITALS: BP 132/74; O2SAT 98
== END 2022-09-12 10:54 | disposition home or self-care (01) ==
LOC: ER 08:43
DX: R60.0 Localized edema (principal); M10.9 Gout, unspecified; I10 Essential (primary) hypertension
CPT/HCPCS: 71045; 93970; 99283

== ENCOUNTER → 2022-09-20 | Day surgery (SDC) | payer OTHER ==
[~2022-09-20] MED LIST: NA CHLORIDE 0.9% 200 ML ONE
== END ==
LOC: DS 08:00
PROVIDERS: ATTEND Internal Medicine Hematology & Oncology
DX: D50.0 Iron deficiency anemia secondary to blood loss (chronic) (principal); D63.1 Anemia in chronic kidney disease; K70.30 Alcoholic cirrhosis of liver without ascites; Z79.01 Long term (current) use of anticoagulants; N18.9 Chronic kidney disease, unspecified
CPT/HCPCS: 36430; 36415; 86900; 86850; 86901; 85018; 85014; P9016 ×2

== ENCOUNTER 2023-04-01 09:25 | Emergency (ER) | payer OTHER ==
--- OUTSIDE RECORDS SUMMARY | 2023-04-01 09:35 | XMS REPORT | Continuity of Care Document ---
:[address] [facility] t Address [address] [place] [address] Care Team Providers Name Role Phone SYLVESTER RAMOS Attending Clinician Unavailable Cayden Patrick Attending Clinician Unavailable A_Byrd Attending Clinician Unavailable JOYCELYN Attending Clinician Unavailable SYLVESTER RAMOS Admitting Clinician Unavailable Cayden Patrick Admitting Clinician Unavailable A_Byrd Admitting Clinician Unavailable JOYCELYN Admitting Clinician Unavailable Payers Payer Name Policy Type Policy Number Effective Date Expiration Date S aamir AET[employer] MEDICARE HMO [id number] 2019 POS 00:00:00 [facility] [id number] 2022 (MEDICARE 00:00:00 REPLACEMENT/ADVANTA GE - HMO) MEDICARE B-[place]: [id number] 2012 [employer] 00:00:00 [employer]NA [id number] 2019 00:00:00 [employer] [id number] CARE ADVANTAGE (MEDICARE REPLACEMENT/ADVANTA GE - HMO) [employer] LIFE [id number] INSURANCE COMPANY - PLAN F (MEDICARE SUPPLEMENT) [employer] (MEDICARE [id number] REPLACEMENT PPO) Problems This patient has no known problems. Allergies, Adverse Reactions, Alerts Allergy Allergy Status Severity Reaction(s) Onset Inactive Treating Comm ents Source Name Type Date Date Clinician No Known DA Active U 2019-08 [facility] Allerg 09-14 [facility] 00:00: [facility] 00 [facility] No Known DA Active U 2019-08 [facility] Allerg 09-14 [facility] 00:00: [facility] Social History Social Habit Start Date Stop Date Quantity Comments Source Sex Assigned At [birth year] [facility] 00:00:00 00:00:00 [facility] Medications This patient has no known medications. Procedures Procedure Date / Time Performed Performing Clinician [facility] e [id number] 2020-07-15 00:00:00 BURDA.[email or web address] [facility] [id number] 2020-07-15 00:00:00 BURDA.[email or web address] [facility] Encounters Start End Encounter Admission Attending Care Care Encounter Source Date/Time Date/Time Type Type Clinicians Facility Department ID 2021-06-02 Inpatient ER [facility] Cardiology [id number] 95 [facility] 17:13:42 [facility] 2020-07-14 Inpatient EM Darnell, [facility] ADMI [id number] [facility] 21:53:00 Adnan 14 [facility] 2022-10-02 2022-10-02 Outpatient A_Byrd MMG MMG [id number] [place] 00:00:00 00:00:00 [facility] 2022-03-06 2022-03-06 Outpatient JOHN LO 703 [place] 04:17:00 04:17:00 HN 0712 da [facility] 2020-02-17 2020-02-17 Outpatient A_Byrd MMG MMG [id number] [place] 12::00 12:21:00 0624 [facility] 2020-02-17 2020-02-17 Outpatient A_Byrd MMG MMG [id number] [place] 12:00 12:21:00 0713 [facility] 2019-08-24 2019-08-24 Outpatient A_Byrd ELLIG MMG [id number] [place] 11: 11:11:00 0212 [facility] Results Test Description Test Time Test Comments [...] U/L 45-120 N code = ALKP) PROTHROMBIN [id number] 06:17:00 Test Item Value Reference Range Interpretation [...] 2.5-3.5recurren t systemic emboli sm. THROMBOPLASTIN TIME [id number] 06:17:00 Test Item Value Reference Range Interpretation Comments THROMBOPLASTIN TIME 26.2 SECONDS 23.8-34.8 N INTERPRE TATIVE PARTIAL (test code = : erapeutic PTT) range: Unfractionated heparin:55 - 80 seconds Argatroban:1.5 to 3 times the basel ine PTT CBC W/AUTO [id number] 06:10:00 Test Item Value Reference Range Interpretation [...] 0.04 x10 3/uL 0.0-0.20 N CBC W/AUTO [id number] 06:10:00 Test Item Value Reference Range Interpretation [...] = BA#) 0.04 x10 3/uL 0.0-0.20 N Notes Date/Time Note Provider Source 2020-07-15 11:35:00-00:00 [id number] [facility] [address] [place] [address] PATIENT NAME: MARTINA BAUER SR ADMIT DATE: 07/14 ACCOUNT NO: [id number] ROOM NO: [id number] AGE: 70 REPORT TYPE: HISTORY AND PHYSICAL SEX: M ADMITTING PHYSICIAN:Cayden Patrick MD ATTENDING PHYSICIAN:Cayden Partick MD ADMISSION DATE: 07/14/2020 REASON FOR ADMISSION: 1. Atrial flutter with rapid ventricular respons e. 2. Sick sinus syndrome. HISTORY OF PRESENT ILLNESS: This is a 70-year-ol d -French gentleman with a past medical history significant for hypertension and anemia, presented to a [facility] on 2019 with complaints of acute right-sided chest pain, shortness of goldie ath, and palpitations. He was found to be in atrial flutter with ra pid ventricular response. The patient was evaluated by cardiology services and started on amiodarone , but developed significant bradycardia. He was switched to beta blo ckers, but had a similar response with marked bradycardia, indicative of sick sinus syn drome. He is on anticoagulation. He also has macrocytic anemia a nd acute kidney injury, which has improved. He has been transferred to the [facility] for higher level of care, consideration of atrial flutter ablation and pacemaker placement. When seen in the room, the p atient is awake, alert, and oriented. He is not the best historian. PAST MEDICAL HISTORY: 1. Chronic hypertension. 2. Anemia. The patient was supposed to get an EG D at the [facility] this week. 3. Renal insufficiency, stage not otherwise spec ified. 4. There is no history of diabetes, heart attack , stroke, cancer or previous atrial fibrillation. PAST SURGICAL HISTORY: Left lower extremity surg cruz. SOCIAL HISTORY: The patient lives at home with h is . He is physically active. No smoking. Drinks wine. FAMILY HISTORY: Noncontributory. HOME MEDICATIONS: Include aspirin, folic acid, ibuprofen, and lisinopril 10 mg daily. ALLERGIES: NO KNOWN DRUG ALLERGIES. REVIEW OF SYSTEMS: Detailed 12-point review of s ystems was performed. Recent onset of right-sided chest pain, shortness of br eath, and palpitations. PATIENT NAME: MARTINA BAUER [id number] Previously no history of exertional chest pain o r dyspnea. No headache or dizziness. No nausea, vomiting, diarrhea, or con stipation. No dysuria or discharge. Chronic joint pains. PHYSICAL EXAMINATION: GENERAL: Elderly male, not in any acute distress . VITAL SIGNS: Temperature 97.5, heart rate 74, re spiratory rate 16, blood pressure 105 to 126/66 to 73, oxygen sat uration is 100% on room air. Weight is 73.8 kilograms. Body mass index 20.9. HEENT: Head is atraumatic. Pupils are reactive t o light and accommodation. Very poor dentition with 3 or 4 teeth surviving. NECK: Supple. CARDIOVASCULAR: Currently regular rate and rhyth m. LUNGS: Decreased breath sounds. ABDOMEN: Soft, nondistended, and nontender. EXTREMITIES: No edema. Pedal pulses palpable. NEUROLOGIC: The patient is awake, alert, and kathy ented. No focal deficit. LABORATORY DATA: From the outside hospital revie sat. D-dimer 611. Sodium 140, potassium 4.7, chloride 103, CO2 of 25, BUN 27, creatinine 1.31, blood sugar 104. WBC 8.7, hemoglobin 9.3, hematocrit 27.5, a nd platelet count 243. EKG shows atrial fibrillation/flutter with a marta tricular response of 87. CT scan of the abdomen and p hanh shows small right pleural fluid collection and trace amount of fluid within the pelvis. Chest x-ray negative for any acute cardiopulmona ry disease. ASSESSMENT AND PLAN: 1. Atypical atrial flutter, presenting with rapi d ventricular response. The patient had marked bradycardia in respon se to beta blockers and amiodarone. He has sick sinus syndrome. Plan is for atrial flut ter ablation and permanent pacemaker placement by Dr. Rasheed. Continue oral anticoagulation. 2. Sick sinus syndrome. Plan as above. 3. Hypertension, continue current home medicatio n. 4. Right-sided chest pain, noncardiac. Continue supportive treatment. 5. Anemia, macrocytic. The patient has a long hi story of alcohol use. We will continue supplementation with folic acid and B12 . Thyroid function tests are normal. The patient needs gastrointestinal savannah p. 6. Deep venous thrombosis prophylaxis, the patie nt is on oral anticoagulants. 7. Gastrointestinal prophylaxis with pantoprazol e. Plan of care discussed with the consultants. Dictated By: Cayden Patrick MD WT: HP:P.PEGGY/LUZ/NTS Conf#: [id number]/DID#: [id number] Authenticated by Cayden Patrick MD On 0 10:18:16 PM PATIENT NAME: MARTINA BAUER SR [id number] Electronically Signed by Cayden Patrick MD on 04/14 at 2218 PATIENT NAME: MARTINA BAUER SR [id number]
[2023-04-01 10:24] LABS: Absolute Lymphocytes (CBC) 1.3 K/uL (0.7-4.9); Hematocrit 23.5 % (39.6-49.0); Lymphocytes % 18.9 % (15.3-44.8); MCV 110.8 fL (80-100); Platelets 185 thou/uL (152-406); RBC Red Blood Cell Count 2.13 M/uL (4.33-5.43)
[2023-04-01 10:28] LABS: Protime INR 1.25
[2023-04-01 10:46] LABS: Albumin 3.5 g/dL (3.4-5.0); Bilirubin Direct 0.3 mg/dL (0-0.2); Bilirubin Indirect, Calculated 0.3 mg/dL (0.2-0.8); Bilirubin Total 0.6 mg/dL (0.2-1.0); Magnesium 1.3 mg/dL (1.6-2.4); Potassium 4.3 mEq/L (3.5-5.1); Protein, Total 6.7 g/dL (6.4-8.2); Troponin High Sensitivity 9.5 pg/mL (<58.9)
--- NOTE | 2023-04-01 11:30 | RAD REPORT ---
EXAM DESCRIPTION: US - Extrem Venous W Compress Doug - 04/01/2023 10:30 am CLINICAL HISTORY: Swelling COMPARISON: 09/12/2022 TECHNIQUE: Real-time sonographic evaluation of the bilateral lower extremity deep venous systems was performed. FINDINGS: Normal compressibility, flow augmentation, phasic flow and spontaneous flow is identified in both the left and right lower extremity deep venous systems. No intraluminal filling defects seen. Mildly prominent left groin lymph nodes, likely reactive. IMPRESSION: No DVT in either lower extremity.
--- NOTE | 2023-04-01 11:33 | RAD REPORT ---
EXAM DESCRIPTION: RADChest Single View04/01/2023 11:11 am CLINICAL HISTORY: MALAISE COMPARISON: Chest Single View dated 09/12/2022; Chest Single View dated 07/31/2021 TECHNIQUE: Portable AP view of the chest. FINDINGS: The lungs show patchy bibasilar airspace opacities. No pneumothorax or effusion. Mild card iomegaly The mediastinal contours are unremarkable. IMPRESSION: Patchy bibasilar airspace opacities, could reflect atelectasis or early pneumonia.
--- NOTE | 2023-04-01 12:13 | ER ---
Nurse's Notes [facility] Name: Sohail Bauer Age: 73 yrs Sex: Male : 1950 Arrival Date: 04/01/2023 Time: 09:25 Bed 3 Private MD: Diagnosis: Unspecified bacterial pneumonia;Peripheral edema Presentation: 04/01 09:41 Chief complaint: Patient states: bilateral swelling of lower extremities, left side is eh3 worse. Pt has metal plate in left leg. Ebola Screen: No symptoms or risks identified at this time. Initial Sepsis Screen: Does the patient meet any 2 criteria? No. Patient's initial sepsis screen is negative. Does the patient have a suspected source of infection? No. Patient's initial sepsis screen is negative. Risk Assessment: Do you want to hurt yourself or someone else? Patient reports no desire to harm self or others. Onset of symptoms was April 01, 2023. 09:41 Method Of Arrival: Wheelchair eh3 09:41 Acuity: ANGÉLICA 3 eh3 09:41 Coronavirus screen: Vaccine status: Patient reports receiving the 2nd dose of the covid eh3 vaccine. Triage Assessment: 09:43 General: Appears in no apparent distress. uncomfortable, Behavior is cooperative, eh3 appropriate for age. Pain: Complains of pain in right leg and left leg. 09:43 Neuro: Level of Consciousness is awake, alert, obeys commands, Oriented to person, eh3 place, time, situation. Cardiovascular: Capillary refill < 3 seconds Patient's skin is warm and dry. Edema is 3+ to left midcalf, left ankle, left foot, right midcalf, right ankle and right foot. Respiratory: Airway is patent Respiratory effort is even, unlabored, Respiratory pattern is regular, symmetrical. Historical: - Home Meds: 09:43 apixaban 2.5 mg Oral tab 1 tab 2 times per day [Active]; atorvastatin 20 mg Oral tab 1 eh3 tab once daily [Active]; indomethacin 50 mg Oral cap 1 cap 2 times per day [Active]; lisinopril 10 mg Oral tab 1 tab once daily [Active]; metoprolol tartrate 50 mg Oral tab 1 tab once daily [Active]; omeprazole 20 mg Oral cpDR 1 cap once daily [Active]; - PMHx: 09:43 Gout; Hyperlipidemia; Hypertension; eh3 - PSHx: 09:43 heart stent x1; eh3 - Immunization history:: Adult Immunizations up to date. - Social history:: Smoking status: Patient reports the use of cigarette tobacco products, smokes one pack cigarettes per day. Screenin:14 [facility] ED Fall Risk Assessment (Adult) History of falling in the last 3 months, iw including since admission No falls in past 3 months (0 pts). Abuse screen: Denies threats or abuse. Denies injuries from another. Nutritional screening: No deficits noted. Tuberculosis screening: No symptoms or risk factors identified. Assessment: 10:13 General: Appears in no apparent distress. Behavior is calm, cooperative. Neuro: Level iw of Consciousness is awake, alert, obeys commands, Oriented to person, place, time, situation, Moves all extremities. Full function. Cardiovascular: Patient's skin is warm and dry. Edema is 2+ to left midcalf, left ankle, left foot, right midcalf, right ankle and right foot pitting to left midcalf, left ankle, left foot, right midcalf, right ankle and right foot. Respiratory: Respiratory effort is even, unlabored, Respiratory pattern is regular, symmetrical. GI: Abdomen is flat, non-distended. Derm: Skin is intact. Musculoskeletal: Range of motion: intact in all extremities. Vital Signs: 09:41 BP 140 / 81; Pulse 74; Resp 18; Temp 97.1(TE); Pulse Ox 100% ; Weight 72.57 kg; Height eh3 6 ft. 2 in. ; Pain 8/10; 09:41 Body Mass Index 20.54 (72.57 kg, 187.96 cm) 3 09:41 Pain Scale: Adult [facility] ED Course: 09:28 Patient arrived in ED. mr 09:29 Mery Glover, [facility] 7 09:29 Waqas Puente MD is Attending Physician. 7 09:43 Triage completed. 3 09:43 Arm band placed on. eh3 09:50 Ashley Brunson, RN is Primary Nurse. iw 10:15 Patient has correct armband on for positive identification. iw 10:15 Inserted saline lock: 22 gauge in left antecubital area, using aseptic technique. Blood iw collected. 10:31 US Extremity Venous W Compression Doug In Process Unspecified. EDMS 10:50 Provided Education on: prescription meds. iw 11:12 XRAY Chest (1 view) In Process Unspecified. EDMS 12:39 No provider procedures requiring assistance completed. IV discontinued, intact, iw bleeding controlled, No redness/swelling at site. Pressure dressing applied. Administered Medications: No medications were administered Medication: 10:15 VIS not applicable for this client. iw Outcome: 12:13 Discharge ordered by . geovanni 12:40 Discharge ordered by MD. galarza 12:48 Patient left the ED. iw 12:48 Discharged to home ambulatory, with friend. iw 12:48 Condition: good 12:48 Discharge instructions given to patient, family, Instructed on discharge instructions, follow up and referral plans. medication usage, Demonstrated understanding of instructions, follow-up care, medications, Prescriptions given X 2. Signatures: Dispatcher [employer] CONNOR Eugene Rosalinda martinez Ashley Brunson, RN RN Yvonne Villar RN RN 3 Mery Glover, CERTIFIED NOVELL ADMINISTRATOR CERTIFIED NOVELL ADMINISTRATOR 7 Corrections: (The following items were deleted from the chart) 09:45 09:41 BP 140 / 81; Pulse 74bpm; Resp 18bpm; Pulse Ox 100%; Temp 97.1F Temporal; eh3 eh3
--- NOTE | 2023-04-01 12:13 | EDPHYS ---
Physician Documentation [facility] Name: Sohail Bauer Age: 73 yrs Sex: Male : 1950 Arrival Date: 04/01/2023 Time: 09:25 Bed 3 Private MD: ED Physician Waqas Puente HPI: 04/01 09:41 This 73 yrs old Black Male presents to ER via Wheelchair with complaints of Swelling of jh7 Lower Extremity. 09:41 The patient presents with pain, swelling. The complaints affect the left leg and right jh7 leg. Onset: The symptoms/episode began/occurred 2 week(s) ago, and became worse yesterday. Associated signs and symptoms: Pertinent positives: calf tenderness, swelling, Pertinent negatives fever, warmth. 73-year-old male presents with bilateral lower extremity swelling, worse on the left. The patient states that the last time he was here a doctor gave him pills to make the swelling go away and that he needs more medication. History of cardiac stent and takes Eliquis. Believes that this is due to gout. Also reports intermittent cough, occasional wheezing, and sneezing. Denies shortness of breath.. Historical: - Home Meds: 09:43 apixaban 2.5 mg Oral tab 1 tab 2 times per day [Active]; atorvastatin 20 mg Oral tab 1 eh3 tab once daily [Active]; indomethacin 50 mg Oral cap 1 cap 2 times per day [Active]; lisinopril 10 mg Oral tab 1 tab once daily [Active]; metoprolol tartrate 50 mg Oral tab 1 tab once daily [Active]; omeprazole 20 mg Oral cpDR 1 cap once daily [Active]; - PMHx: 09:43 Gout; Hyperlipidemia; Hypertension; eh3 - PSHx: 09:43 heart stent x1; eh3 - Immunization history:: Adult Immunizations up to date. - Social history:: Smoking status: Patient reports the use of cigarette tobacco products, smokes one pack cigarettes per day. ROS: 09:41 Constitutional: Negative for fever, chills, and weight loss, Eyes: Negative for injury, jh7 pain, redness, and discharge, Neck: Negative for injury, pain, and swelling, Cardiovascular: Negative for chest pain, palpitations, and edema, Respiratory: Negative for shortness of breath, cough, wheezing, and pleuritic chest pain, Abdomen/GI: Negative for abdominal pain, nausea, vomiting, diarrhea, and constipation, Skin: Negative for injury, rash, and discoloration, Neuro: Negative for headache, weakness, numbness, tingling, and seizure. 09:41 MS/extremity: Positive for pain, swelling, of the right foot and left foot and left leg and right leg. Exam: 09:41 Constitutional: This is a well developed, well nourished patient who is awake, alert, jh7 and in no acute distress. Neck: Trachea midline, no thyromegaly or masses palpated, and no cervical lymphadenopathy. Supple, full range of motion without nuchal rigidity, or vertebral point tenderness. No Meningismus. Cardiovascular: Regular rate and rhythm with a normal S1 and S2. No gallops, murmurs, or rubs. Normal PMI, no JVD. No pulse deficits. Respiratory: Lungs have equal breath sounds bilaterally, clear to auscultation and percussion. No rales, rhonchi or wheezes noted. No increased work of breathing, no retractions or nasal flaring. Abdomen/GI: Soft, non-tender, with normal bowel sounds. No distension or tympany. No guarding or rebound. No evidence of tenderness throughout. Skin: Warm, dry with normal turgor. Normal color with no rashes, no lesions, and no evidence of cellulitis. MS/ Extremity: Pulses equal, no cyanosis. Neurovascular intact. Full, normal range of motion. Neuro: Awake and alert, GCS 15, oriented to person, place, time, and situation. Cranial nerves II-XII grossly intact. Motor strength 5/5 in all extremities. Sensory grossly intact. Cerebellar exam normal. Normal gait. 09:41 Cardiovascular: Edema: 3+ edema to level of left midcalf, left ankle, left foot, left toes, right midcalf, right ankle, right foot and right toes, pedal edema, that is moderate, ankle edema, that is moderate. Vital Signs: 09:41 BP 140 / 81; Pulse 74; Resp 18; Temp 97.1(TE); Pulse Ox 100% ; Weight 72.57 kg; Height eh3 6 ft. 2 in. ; Pain 8/10; 09:41 Body Mass Index 20.54 (72.57 kg, 187.96 cm) eh3 09:41 Pain Scale: Adult eh3 MDM: 09:29 Patient medically screened. [facility] 11:40 Differential diagnosis: DVT, heart failure, pneumonia, URI. Data reviewed: vital signs, [facility] nurses notes, lab test result(s), EKG, radiologic studies, plain films, ultrasound. Independent interpretation of the following test(s) in the Emergency Department EKG: See my EKG interpretation above. Historians other than the Patient: Spouse/Significant Other: . Care significantly affected by the following chronic conditions: Hypertension. Counseling: I had a detailed discussion with the patient and/or guardian regarding: the historical points, exam findings, and any diagnostic results supporting the discharge/admit diagnosis, the need for outpatient follow up, for definitive care, to return to the emergency department if symptoms worsen or persist or if there are any questions or concerns that arise at home. Special discussion: Advised patient to follow-up with the [place] [facility] to see what diuretic he was on and have it refilled. The patient was calm and in no distress throughout the ER visit. Informed him that his x-ray showed possible pneumonia and would give antibiotic and inhaler to treat. He stated that he occasionally coughed but otherwise felt fine.. 04/01 09:46 Order name: Basic Metabolic Panel; Complete Time: 11:01 [facility] 04/01 09:46 Order name: CBC with Diff [facility] 04/01 09:46 Order name: LFT's; Complete Time: 11:01 [facility] 04/01 09:46 Order name: Magnesium; Complete Time: 11:01 [facility] 04/01 09:46 Order name: NT PRO-BNP; Complete Time: 11:01 [facility] 04/01 09:46 Order name: PT-INR; Complete Time: 10:42 [facility] 04/01 09:46 Order name: Troponin HS; Complete Time: 11:01 [facility] 04/01 10:31 Order name: CBC Smear Scan EDMS 04/01 09:46 Order name: XRAY Chest (1 view); Complete Time: 11:35 [facility] 04/01 09:46 Order name: US Extremity Venous W Compression Doug; Complete Time: 11:35 [facility] 04/01 09:46 Order name: EKG; Complete Time: 09:47 [facility] 04/01 09:46 Order name: Cardiac monitoring; Complete Time: 09:57 [facility] 04/01 09:46 Order name: EKG - Nurse/Tech; Complete Time: 09:57 [facility] 04/01 09:46 Order name: IV Saline Lock; Complete Time: : [facility] 04/01 09:46 Order name: Labs collected and sent; Complete Time: : [facility] 04/01 09:46 Order name: O2 Per Protocol; Complete Time: : [facility] 04/01 09:46 Order name: O2 Sat Monitoring; Complete Time: : [facility] EC:56 Rate is 65 beats/min. Rhythm is regular. QRS [place] is Normal. [place] interval is normal at [facility] 162 msec. QRS interval is normal at 86 msec. QT interval is normal at 382 msec. No Q waves. T waves are Normal. No ST changes noted. Clinical impression: Normal Sinus Rhythm. Administered Medications: No medications were administered Disposition: 14:18 Co-signature as Attending Physician, Waqas Puente MD I reviewed the patient's care rn provided by the Advanced Practice Provider and agree with the diagnosis and treatment plan. Disposition Summary: 04/01/23 12:40 Discharge Ordered Location: Home(04/01/23 12:40) [facility] Problem: new(04/01/23 12:40) [facility] Symptoms: are unchanged(04/01/23 12:40) [facility] Condition: Stable(04/01/23 12:40) [facility] Diagnosis - Unspecified bacterial pneumonia [facility] - Peripheral edema [facility] Followup: [facility] - With: Private Physician - When: 2 - 3 days - Reason: Recheck today's complaints Discharge Instructions: - Discharge Summary Sheet [facility] - Community-Acquired Pneumonia, Adult [facility] - Peripheral Edema [facility] Forms: - Medication Reconciliation Form [facility] - Thank You Letter [facility] - Antibiotic Education [facility] - Patient Portal Instructions [facility] Prescriptions: - ProAir RespiClick 90 mcg/actuation Inhalation Aerosol Powder, Breath Activated - administer 1 inhalation by INHALATION route every 4 to 6 hours As needed as [facility] needed for shortness of breath or wheezing; 1 Each; Refills: 0, Product Selection Permitted - azithromycin 250 mg Oral tablet - take 2 tablet by ORAL route Day 1 for 5 days Take 2 tablets by mouth on day 1. [facility] Then take 1 tablet by mouth daily on days 2 through 5.; 6 tablet; Refills: 0, Product Selection Permitted Signatures: Dispatcher [employer] EDWaqas Donnelly MD MD rn Hall, Erin, RN RN 3 Mery Glover FNP [place] [id number] Corrections: (The following items were deleted from the chart) 11:32 09:41 73-year-old male presents with bilateral lower extremity swelling, worse on the jh left. The patient states that the last time he was here a doctor gave him pills to make the swelling go away and that he needs more medication. History of cardiac stent and takes Eliquis. Reports bilateral calf pain.. [facility] 12:39 12:13 Home [place] [id number] 12:39 12:13 new [place] [id number] 12:39 12:13 have improved [place] [id number] 12:39 12:13 Stable [place] [id number] 12:39 12:13 Peripheral Edema [place] [id number] 13:31 09:41 73-year-old male presents with bilateral lower extremity swelling, worse on the jh left. The patient states that the last time he was here a doctor gave him pills to make the swelling go away and that he needs more medication. History of cardiac stent and takes Eliquis. Believes that this is due to gout.. [facility]
[2023-04-01 12:58] VITALS: BP 140/81; TEMP 97.1; O2SAT 100
[2023-04-01 12:58] LABS: Anisocytosis 3+; Blood Morphology Comment NOTED (NOT SEEN); Macrocytosis 2+; Ovalocytes 1+; Platelet Estimate ADEQ; Platelets, Giant FEW PRESENT; Target Cells 1+; White Blood Cell Scan OK (OK)
--- NOTE | 2023-04-03 18:17 | EKG ---
Test Date: 2023-04-01 Test Time: 09:56:08 [employer] Repairer: JOSEFA MEASUREMENT RESULTS: Intervals: Rate: 65 MO: 162 QRSD: 86 QT: 382 QTc: 397 [place]: P: 60 MO: 162 QRS: 8 T: 35 INTERPRETIVE STATEMENTS: Normal sinus rhythm Minimal voltage criteria for LVH, may be normal variant Borderline ECG Compared to ECG 07/31/2021 01:30:41 Left ventricular hypertrophy now present Electronically Signed On 04-03-23 18:13:00 CDT by David Terrazas
== END 2023-04-01 12:48 | disposition home or self-care (01) ==
LOC: ER 09:25
DX: J15.9 Unspecified bacterial pneumonia (principal); R60.9 Edema, unspecified; F17.210 Nicotine dependence, cigarettes, uncomplicated; E78.5 Hyperlipidemia, unspecified; I10 Essential (primary) hypertension; Z95.818 Presence of other cardiac implants and grafts
CPT/HCPCS: 36415; 71045; 80048; 80076; 83735; 83880; 84484; 85025; 85610; 93005; 93970; 99284

== ENCOUNTER 2023-07-12 06:45 | Day surgery (SDC) | payer OTHER ==
[2023-07-12] MEDS ORDERED: NA CHLORIDE 0.9% 250 ML ONE (07:17)
[2023-07-12 07:56] VITALS: BMI 20.7
[2023-07-12 09:34] VITALS: O2SAT 97
[2023-07-12 09:59] VITALS: BP 147/75; TEMP 98.9
[2023-07-13 18:01] LABS: Hematocrit 23.6 % (39.6-49.0)
== END 2023-07-12 12:30 | disposition home or self-care (01) ==
LOC: DS 06:45
PROVIDERS: ATTEND Nurse Practitioner Family
DX: D50.0 Iron deficiency anemia secondary to blood loss (chronic) (principal); D63.1 Anemia in chronic kidney disease; K70.30 Alcoholic cirrhosis of liver without ascites; R71.8 Other abnormality of red blood cells; Z79.01 Long term (current) use of anticoagulants
CPT/HCPCS: 36415; 86900; 86850; 86901; 86920; 85018; 85014; 36430; P9016; J7050

== ENCOUNTER 2023-12-09 10:25 | Emergency (ER) | payer OTHER ==
[2023-12-09 11:07] LABS: Absolute Basophils 0.1 K/uL (0-0.5); Absolute Eosinophils 0.1 K/uL (0-0.5); Absolute Lymphocytes (CBC) 1.7 K/uL (0.7-4.9); Absolute Monocytes 0.7 K/uL (0.1-1.3); Absolute Neutrophil 3.7 K/uL (1.8-8.0); Basophils % 1.5 % (0-1.3); Eosinophils % 1.2 % (0-4.4); Hemoglobin 6.1 g/dL (13.6-17.9); Lymphocytes % 27.7 % (15.3-44.8); MCH 40.1 pg (27.0-35.0); MCHC 33.7 g/dL (32.0-36.0); MCV 119.2 fL (80-100); MPV 9.5 fL (7.6-11.3); Monocytes % 10.9 % (3.3-12.3); Neutrophils % 58.7 % (41.7-73.7); Nucleated RBC Absolute Count 0.1 (0-0); Nucleated Red Blood Cells % 2.1 % (0-0); Platelets 233 thou/uL (152-406); RBC Red Blood Cell Count 1.51 M/uL (4.33-5.43); Red Cell Distribution Width 27.6 % (12.1-15.2)
[2023-12-09 11:24] LABS: Albumin 3.5 g/dL (3.4-5.0); Albumin/Globulin Ratio 1.2 (1.1-1.8); Anion Gap 6.9 mEq/L (5.0-15.0); Bilirubin Total 0.6 mg/dL (0.2-1.0); Potassium 3.9 mEq/L (3.5-5.1); Protein, Total 6.5 g/dL (6.4-8.2)
[2023-12-09] MEDS ORDERED: NA CHLORIDE 0.9% 250 ML ONE (12:12)
[2023-12-09 12:13] LABS: Anisocytosis 2+; Blood Morphology Comment NOTED (NOT SEEN); Differential Total Cells Count 100; Hypochromasia 1+; Lymphocytes 20 % (15-42); Macrocytosis 1+; Monocytes 8 % (0-10); Nucleated Red Blood Cells 8 /100WBC; Platelet Estimate ADEQ; Segmented Neutrophils 72 % (40-80)
[2023-12-09 12:17] LABS: Basophilic Stippling 2+
[2023-12-09] MEDS ORDERED: ACETAMINOPHEN 500 MG TAB ONE (12:50)
--- NOTE | 2023-12-09 14:58 | ER ---
Nurse's Notes [facility] Name: Sohail Bauer Age: 73 yrs Sex: Male : 1950 Arrival Date: 12/09/2023 Time: 10:25 Bed 6 Private MD: Diagnosis: Anemia, unspecified Presentation: 12/08 10:29 Chief complaint: Patient states: Sent in for abnormal lab work, "needs a transfusion". ll1 Coronavirus screen: Client denies travel out of the [place] in the last 14 days. At this time, the client does not indicate any symptoms associated with coronavirus-19. Ebola Screen: Patient denies travel to an Ebola-affected area in the 21 days before illness onset. Initial Sepsis Screen: Does the patient meet any 2 criteria? No. Patient's initial sepsis screen is negative. Does the patient have a suspected source of infection? No. Patient's initial sepsis screen is negative. Risk Assessment: Do you want to hurt yourself or someone else? Patient reports no desire to harm self or others. 10:29 Method Of Arrival: Ambulatory ll1 10:29 Acuity: ANGÉLICA 3 ll1 15:10 Onset of symptoms was December 09, 2023. ld1 Historical: - Allergies: 10:29 No Known Allergies; ll1 - PMHx: 10:29 Gout; Hyperlipidemia; Hypertension; ll1 - PSHx: 10:29 heart stent x1; ll1 - Immunization history:: Adult Immunizations up to date. - Infectious Disease History:: Denies. - Social history:: Smoking status: Patient denies any tobacco usage or history of. Screenin:34 [facility] ED Fall Risk Assessment (Adult) History of falling in the last 3 months, ld1 including since admission No falls in past 3 months (0 pts). Abuse screen: Denies threats or abuse. Denies injuries from another. Nutritional screening: No deficits noted. Tuberculosis screening: No symptoms or risk factors identified. Assessment: 12:34 General: Appears in no apparent distress. uncomfortable, Behavior is calm, cooperative, ld1 appropriate for age. Pain: Complains of pain in right leg and left leg Pain does not radiate. Pain currently is 8 out of 10 on a pain scale. Quality of pain is described as throbbing, Pain began suddenly, Is continuous. Neuro: Level of Consciousness is awake, alert, obeys commands, Oriented to person, place, time, situation. Cardiovascular: Capillary refill < 3 seconds Patient's skin is warm and dry. Respiratory: Airway is patent Respiratory effort is even, unlabored. GI: Abdomen is flat, non-distended. : No signs and/or symptoms were reported regarding the genitourinary system. EENT: No signs and/or symptoms were reported regarding the EENT system. Derm: No signs and/or symptoms reported regarding the dermatologic system. Musculoskeletal: No signs and/or symptoms reported regarding the musculoskeletal system. 12:34 Reassessment: PRBC infusing now. ld1 12:47 Reassessment: blood infusion started at 1230 at 50 ml/hr remained with pt for first 15 rs5 min of transfusion, no adverse reaction noted, rate increased to 150 ml/hr. 13:20 Reassessment: No changes from previously documented assessment. rs5 14:39 Reassessment: Patient appears in no apparent distress at this time. No changes from ld1 previously documented assessment. Patient and/or family updated on plan of care and expected duration. Pain level reassessed. 14:55 Reassessment: Patient and/or family updated on plan of care and expected duration. Pain rs5 level reassessed. Patient is alert, oriented x 3, equal unlabored respirations, skin warm/dry/pink. Patient states feeling better. Patient states symptoms have improved. Blood transfusion complete \\T\\[id number], no blood transfusion reaction noted, see blood transfusion record for more information. 15:03 Reassessment: Pt is up for discharge, pt states "my sister is coming to pick me up rs5 right now". Vital Signs: 12:34 BP 148 / 89; Pulse 71; Resp 18; Pulse Ox 100% on R/A; ld1 13:44 BP 143 / 86; Pulse 56; Resp 18; Pulse Ox 99% on R/A; ld1 14:39 BP 148 / 87; Pulse 53; Resp 18; Pulse Ox 97% ; ld1 14:50 BP 146 / 86; Pulse 65; Resp 18; Temp 97.7(O); Pulse Ox 99% ; rs5 ED Course: 10:28 Patient arrived in ED. im 10:28 Daniele Nelson MD is Attending Physician. ec2 10:29 Arm band placed on. ll1 10:30 Triage completed. ll1 10:36 Marsha Meyer, RN is Primary Nurse. ld1 10:37 Patient placed in an exam room, on a stretcher. ll1 12:34 Patient has correct armband on for positive identification. Placed in gown. Bed in low ld1 position. Call light in reach. Side rails up X2. media monitor on. Pulse ox on. NIBP on. Door closed. Noise minimized. Warm blanket given. 12:34 No provider procedures requiring assistance completed. ld1 15:10 IV discontinued, intact, bleeding controlled, No redness/swelling at site. ld1 Administered Medications: 12:55 Drug: Acetaminophen PO 1000 mg PO once Route: PO; rs5 14:02 Follow up: Response: No adverse reaction rs5 Medication: 12:34 VIS not applicable for this client. ld1 Outcome: 14:57 Discharge ordered by . ec2 15:09 Discharged to home via wheelchair, with family, ld1 15:09 Condition: stable 15:09 Discharge instructions given to patient, family, Instructed on discharge instructions, follow up and referral plans. Demonstrated understanding of instructions, follow-up care, 15:16 Patient left the ED. ld1 Signatures: Donya Gilmore RN RN ll1 Marsha Meyer, RAJAT RN ld1 Israel Correa RN RN rs5 Katja Verdin Edwin, MD MD ec2
--- NOTE | 2023-12-09 14:58 | EDPHYS ---
Physician Documentation [facility] Name: Sohail Bauer Age: 73 yrs Sex: Male : 1950 Arrival Date: 12/09/2023 Time: 10:25 Bed 6 Private MD: ED Physician Daniele Nelson HPI: 12/08 10:33 This 73 yrs old Black Male presents to ER via Ambulatory with complaints of Abnormal ec2 Lab Results. 10:33 Patient with history of anemia arrives today for blood transfusion that he had ec2 outpatient labs indicated he was anemic. Patient reports some general weakness. Otherwise no other concerns. History of previous blood transfusions. recent hgb at 6.2. denies bloody stools, melena or other concerns. . Historical: - Allergies: 10:29 No Known Allergies; ll1 - PMHx: 10:29 Gout; Hyperlipidemia; Hypertension; ll1 - PSHx: 10:29 heart stent x1; ll1 - Immunization history:: Adult Immunizations up to date. - Infectious Disease History:: Denies. - Social history:: Smoking status: Patient denies any tobacco usage or history of. ROS: 10:33 Constitutional: as per hpi ec2 Exam: 10:33 Constitutional: GEN: NAD Head: atraumatic Eyes: EOMI Ears: External ears are ec2 normal. CV: regular rate LUNGS: no respiratory distress ABD: non-distended SKIN: no evidence of rashes MSK: no evidence of trauma NEURO: moves all extremities equally Vital Signs: 12:34 BP 148 / 89; Pulse 71; Resp 18; Pulse Ox 100% on R/A; ld1 13:44 BP 143 / 86; Pulse 56; Resp 18; Pulse Ox 99% on R/A; ld1 14:39 BP 148 / 87; Pulse 53; Resp 18; Pulse Ox 97% ; ld1 14:50 BP 146 / 86; Pulse 65; Resp 18; Temp 97.7(O); Pulse Ox 99% ; rs5 MDM: 10:33 Data reviewed: vital signs. ED course: Patient arrives today for evaluation of anemia. ec2 Examination remarkable for nontoxic dividual is otherwise in no acute distress febrile obtain lab work, anticipate blood transfusion.. 10:39 Patient medically screened. ec2 11:02 ED course: EKG independently reviewed and interpreted by me, shows atrial fibrillation, ec2 rate of 80, no acute dysfunctions, nonconcerning intervals, motion artifact noted.. 14:57 ED course: Patient underwent transfusion without issue. Patient discharged home. Return ec2 precautions given.. 12/08 10:43 Order name: ABO/RH typing EDLA 12/08 10:43 Order name: Antibody Screen EDLA 12/08 10:32 Order name: CBC with Diff; Complete Time: 12:47 ec2 12/08 10:32 Order name: CMP; Complete Time: 11:40 ec2 12/08 10:39 Order name: Packed Rbc Leukored ec2 12/08 12:14 Order name: Manual Differential; Complete Time: 12:47 EDLA 12/08 10:39 Order name: Consent for Blood Transfusion; Complete Time: 12:30 ec2 12/08 10:39 Order name: IV Saline Lock; Complete Time: 11:12 ec2 Administered Medications: 12:55 Drug: Acetaminophen PO 1000 mg PO once Route: PO; rs5 14:02 Follow up: Response: No adverse reaction rs5 Disposition Summary: 12/09/23 14:57 Discharge Ordered Notes: Location: Home ec2 Problem: an ongoing problem ec2 Symptoms: have improved ec2 Condition: Stable ec2 Diagnosis - Anemia, unspecified ec2 Followup: ec2 - With: Private Physician - When: - Reason: Re-evaluation by your physician Discharge Instructions: - Discharge Summary Sheet ec2 - Blood Transfusion, Adult ec2 Forms: - Medication Reconciliation Form ec2 - Thank You Letter ec2 - Antibiotic Education ec2 - Prescription Opioid Use ec2 - Patient Portal Instructions ec2 - Leadership Thank You Letter ec2 Critical care time excluding procedures: 11:41 Critical care time: Bedside Care: 30 minutes. Total time: 30 minutes ec2 Signatures: Dispatcher [employer] [facility] Donya Gilmore RN RN ll1 Marsha Meyer RN RN ld1 Israel Correa RN RN rs5 Daniele Nelson MD MD ec2 Corrections: (The following items were deleted from the chart) 10:40 10:40 PACKED RBC LEUKORED+BB.LAB.BRZ ordered. [facility] 10:40 10:33 Patient with history of anemia arrives today for blood transfusion that he had ec2 outpatient labs indicated he was anemic. Patient reports some general weakness. Otherwise no other concerns. History of previous blood transfusions.. ec2 11:06 10:33 Patient with history of anemia arrives today for blood transfusion that he had ec2 outpatient labs indicated he was anemic. Patient reports some general weakness. Otherwise no other concerns. History of previous blood transfusions. recent hgb at 6.2. ec2 11:39 10:33 TYPE AND SCREEN+BB.LAB.BRZ ordered. EDMS EDMS
[2023-12-09 16:45] VITALS: BP 146/86; TEMP 97.7; O2SAT 99
== END 2023-12-09 15:16 | disposition home or self-care (01) ==
LOC: ER 10:25
PROC: 30233N1 Transfusion of Nonautologous Red Blood Cells into Peripheral Vein, Percutaneous Approach (ICD-10-PCS; principal; 2023-12-09)
DX: D64.9 Anemia, unspecified (principal); I10 Essential (primary) hypertension; Z95.818 Presence of other cardiac implants and grafts
CPT/HCPCS: 93005; 85025; 36415; 86900; 86850; 86901; 86920; 80053; 99284; 36430; P9016; J7050

== ENCOUNTER 2025-04-15 09:53 | Emergency (ER) | payer OTHER ==
[2025-04-15 10:58] LABS: Absolute Lymphocytes (CBC) 1.0 K/uL (0.7-4.9); Hematocrit 18.3 % (39.6-49.0); Hemoglobin 6.3 g/dL (13.6-17.9); MCH 37.6 pg (27.0-35.0); MCHC 34.3 g/dL (32.0-36.0); MCV 109.5 fL (80-100); MPV 9.5 fL (7.6-11.3); Nucleated RBC Absolute Count 0.0 (0-0); Nucleated Red Blood Cells % 0.7 % (0-0); RBC Red Blood Cell Count 1.67 M/uL (4.33-5.43); White Blood Count 3.60 thou/uL (4.3-10.9)
[2025-04-15 11:10] LABS: Anion Gap 9.4 mEq/L (5.0-15.0); BUN Blood Urea Nitrogen 29.0 mg/dL (7-18); Glucose Level 102.0 mg/dL (74-106); Potassium 3.4 mEq/L (3.5-5.1)
[2025-04-15 12:39] LABS: White Blood Cell Scan OK (OK)
[2025-04-15 12:40] LABS: Anisocytosis 3+; Blood Morphology Comment NOTED (NOT SEEN); Burr Cells 1+; Macrocytosis 1+; Microcytosis 1+; Ovalocytes SLIGHT; Poikilocytosis 1+
--- NOTE | 2025-04-15 16:00 | EDPHYS ---
Physician Documentation [facility] Name: Sohail Bauer Age: 75 yrs Sex: Male : 1950 Arrival Date: 04/15/2025 Time: 09:53 Bed 13 Private MD: ED Physician Jeremiah Moss HPI: 04/15 10:16 This 75 yrs old Black Male presents to ER via Unassigned with complaints of Blood sb4 Transfusion. 10:16 Patient has history of acute on chronic anemia, had blood drawn recently and was told sb4 he was low transfusion. States that he feels weak. Denies any melanotic stools. Was hospitalized a month ago and underwent colonoscopy and EGD that was negative for any GI bleeding. He has an appointment to see GI again next week. Historical: - Allergies: 10:24 No Known Allergies; ss - PMHx: 10:17 Anemia; Gout; Hyperlipidemia; Hypertension; kidney disease; ss - PSHx: 10:17 heart stent x1; ss - Immunization history:: Adult Immunizations up to date. - Infectious Disease History:: Denies. - Social history:: Smoking status: Patient denies any tobacco usage or history of. ROS: 10:16 Constitutional: Negative for fever, chills, and weight loss, sb4 10:16 Neuro: Positive for weakness, 10:16 All other systems are negative, Exam: 10:16 Head/Face: Normocephalic, atraumatic. Eyes: Extra-ocular motions intact. Periorbital sb4 areas with no swelling, redness, or edema. ENT: Mucous membranes moist. Cardiovascular: Regular rate and rhythm with a normal S1 and S2. Respiratory: No increased work of breathing, no retractions or nasal flaring. Abdomen/GI: Soft, non-tender, no distension. Skin: Warm, dry with normal turgor. Normal color with no rashes, no lesions, and no evidence of cellulitis. 10:16 Constitutional: The patient appears in no acute distress, alert, awake, frail, Vital Signs: 10:23 BP 124 / 69; Pulse 76; Resp 17; Temp 98.6(O); Pulse Ox 98% on R/A; Weight 69.85 kg; ss Height 6 ft. 2 in. ; Pain 0/10; 11:00 BP 105 / 72; Pulse 65; Resp 16; Pulse Ox 100% ; me1 12:35 BP 125 / 73; Pulse 62; Resp 18; Temp 98.4; Pulse Ox 99% ; rg5 13:32 BP 131 / 102; Pulse 81; Resp 18; rg5 14:45 BP 154 / 76; Pulse 60; Resp 18; Pulse Ox 100% ; rg5 15:10 BP 146 / 80; Pulse 55; Resp 17; Pulse Ox 100% ; rg5 16:00 BP 152 / 84; Pulse 56; Resp 17; Pulse Ox 99% on R/A; rg5 10:23 Body Mass Index 19.77 (69.85 kg, 187.96 cm) ss 10:23 Pain Scale: Adult ss MDM: 09:55 Medical Screening Exam initiated sb4 10:17 Differential diagnosis: anemia, weakness, volume depletion, GIB. sb4 11:33 Data reviewed: vital signs, nurses notes, lab test result(s), and as a result, I will sb4 discharge patient. Care significantly affected by the following chronic conditions: Hypertension, Chronic Kidney Disease. 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 04/15 10:08 Order name: Type And Screen sb4 04/15 10:07 Order name: CBC with Diff; Complete Time: 12:41 sb4 04/15 10:07 Order name: BMP; Complete Time: 11:10 sb4 04/15 10:07 Order name: Abo/rh Typing sb4 04/15 11:04 Order name: CBC Smear Scan; Complete Time: 12:41 EDMS 04/15 11:25 Order name: Packed RBC Leukored EDAR 04/15 10:07 Order name: IV Start; Complete Time: 11:03 sb4 04/15 10:07 Order name: Labs collected and sent; Complete Time: 11:34 sb4 04/15 10:07 Order name: Transfuse; Complete Time: 12:27 sb4 Administered Medications: No medications were administered Disposition: 04/16 09:01 Co-signature as Attending Physician, Jeremiah Moss MD I agree with the assessment and kirill plan of care. Disposition Summary: 04/15/25 15:59 Discharge Ordered Notes: Location: Home sb4 Problem: an ongoing problem sb4 Symptoms: have improved sb4 Condition: Stable sb4 Diagnosis - Anemia, unspecified sb4 Followup: sb4 - With: Emergency Department - When: As needed - Reason: Trouble breathing, Worsening of condition Discharge Instructions: - Discharge Summary Sheet sb4 - Blood Transfusion, Adult, Care After sb4 Forms: - Patient Portal Instructions sb4 - Leadership Thank You Letter sb4 Critical care time excluding procedures: 04/15 11:33 Critical care time: Bedside Care: 20 minutes, Consultation: 15 minutes. Total time: 35 sb4 minutes Signatures: Dispatcher [employer] EDJeremiah Rea MD MD cha Blanchard, Shelby, RN RN Danitza Chavez PA-C PA-C sb4 Amparo Juárez RN RN me1
--- NOTE | 2025-04-15 16:00 | ER ---
Nurse's Notes [facility] Name: Sohail Bauer Age: 75 yrs Sex: Male : 1950 Arrival Date: 04/15/2025 Time: 09:53 Bed 13 Private MD: Diagnosis: Anemia, unspecified Presentation: 04/15 10:23 Chief complaint: Patient states: Sent by PCP for possible blood transfusion. ss Coronavirus screen: Client denies travel out of the [place] in the last 14 days. Ebola Screen: Patient denies exposure to infectious person. Patient denies travel to an Ebola-affected area in the 21 days before illness onset. Initial Sepsis Screen: Does the patient meet any 2 criteria? No. Patient's initial sepsis screen is negative. Does the patient have a suspected source of infection? No. Patient's initial sepsis screen is negative. Risk Assessment: Do you want to hurt yourself or someone else? Patient reports no desire to harm self or others. Onset of symptoms is unknown. 10:23 Method Of Arrival: Ambulatory ss 10:23 Acuity: ANGÉLICA 3 ss Historical: - Allergies: 10:24 No Known Allergies; ss - PMHx: 10:17 Anemia; Gout; Hyperlipidemia; Hypertension; kidney disease; ss - PSHx: 10:17 heart stent x1; ss - Immunization history:: Adult Immunizations up to date. - Infectious Disease History:: Denies. - Social history:: Smoking status: Patient denies any tobacco usage or history of. Screenin:20 [facility] ED Fall Risk Assessment (Adult) History of falling in the last 3 months, me1 including since admission No falls in past 3 months (0 pts) Confusion or Disorientation No (0 pts) Intoxicated or Sedated No (0 pts) Impaired Gait Yes (1 pt) Mobility Assist Device Used Yes (1 pt) Altered Elimination No (0 pt) Score/Fall Risk Level 0 - 2 = Low Risk Maintained a safe environment, Provided non-skid footwear, Hourly rounding (assess needs \T\ fall precautionary measures) done. Abuse screen: Denies threats or abuse. Nutritional screening: No deficits noted. Tuberculosis screening: No symptoms or risk factors identified. Assessment: 10:20 General: Appears slender, well developed, Behavior is calm, cooperative, appropriate me1 for age, Reports Sent by PCP for possible blood transfusion. Pain: Denies pain. Neuro: Level of Consciousness is awake, alert, obeys commands, Oriented to person, place, time, situation, Appropriate for age. Cardiovascular: Patient's skin is warm and dry. Respiratory: Airway is patent Respiratory effort is even, unlabored, Respiratory pattern is regular, symmetrical. GI: No signs and/or symptoms were reported involving the gastrointestinal system. : No signs and/or symptoms were reported regarding the genitourinary system. EENT: No signs and/or symptoms were reported regarding the EENT system. Derm: Skin is fragile, is thin, Skin is normal. Musculoskeletal: No signs and/or symptoms reported regarding the musculoskeletal system. Circulation, motion, and sensation intact. Range of motion: intact in all extremities. 12:00 General: Appears in no apparent distress. comfortable, Behavior is calm, cooperative, rg5 appropriate for age. 12:00 Pain: Denies pain. Neuro: Level of Consciousness is awake, alert, obeys commands, rg5 Oriented to person, place, time, situation. Cardiovascular: Denies chest pain. Respiratory: Airway is patent Trachea midline Respiratory effort is even, unlabored, Respiratory pattern is regular, symmetrical. GI: Abdomen is round non-distended. : No signs and/or symptoms were reported regarding the genitourinary system. EENT: No signs and/or symptoms were reported regarding the EENT system. Derm: Skin is intact, Skin is dry, Skin is normal. Musculoskeletal: Circulation, motion, and sensation intact. Range of motion: intact in all extremities. 13:00 Reassessment: No changes from previously documented assessment. Patient and/or family rg5 updated on plan of care and expected duration. Pain level reassessed. Patient is alert, oriented x 3, equal unlabored respirations, skin warm/dry/pink. 14:00 Reassessment: No changes from previously documented assessment. Patient and/or family rg5 updated on plan of care and expected duration. Pain level reassessed. Patient is alert, oriented x 3, equal unlabored respirations, skin warm/dry/pink. 15:00 Reassessment: No changes from previously documented assessment. Patient and/or family rg5 updated on plan of care and expected duration. Pain level reassessed. Patient is alert, oriented x 3, equal unlabored respirations, skin warm/dry/pink. 16:00 Reassessment: No changes from previously documented assessment. Patient and/or family rg5 updated on plan of care and expected duration. Pain level reassessed. 17:27 Reassessment: No changes from previously documented assessment. Patient and/or family rg5 updated on plan of care and expected duration. Pain level reassessed. Vital Signs: 10:23 BP 124 / 69; Pulse 76; Resp 17; Temp 98.6(O); Pulse Ox 98% on R/A; Weight 69.85 kg; ss Height 6 ft. 2 in. ; Pain 0/10; 11:00 BP 105 / 72; Pulse 65; Resp 16; Pulse Ox 100% ; me1 12:35 BP 125 / 73; Pulse 62; Resp 18; Temp 98.4; Pulse Ox 99% ; rg5 13:32 BP 131 / 102; Pulse 81; Resp 18; rg5 14:45 BP 154 / 76; Pulse 60; Resp 18; Pulse Ox 100% ; rg5 15:10 BP 146 / 80; Pulse 55; Resp 17; Pulse Ox 100% ; rg5 16:00 BP 152 / 84; Pulse 56; Resp 17; Pulse Ox 99% on R/A; rg5 10:23 Body Mass Index 19.77 (69.85 kg, 187.96 cm) ss 10:23 Pain Scale: Adult ss ED Course: 09:54 Patient arrived in ED. mr 09:55 [facility]it[facility] Dolan [facility] sb4 09:55 Jeremiah Moss MD is Attending Physician. sb4 10:00 Amparo Juárez, RAJAT is Primary Nurse. me1 10:20 Patient has correct armband on for positive identification. Bed in low position. Call me1 light in reach. Side rails up X 1. Provided Education on: POC. Verbalized understanding.. Client placed on continuous cardiac and pulse oximetry monitoring. NIBP monitoring applied. Pulse ox on. NIBP on. 10:20 No provider procedures requiring assistance completed. me1 10:24 Triage completed. ss 10:24 Arm band placed on right wrist. ss 10:51 Initial lab(s) drawn, by me, sent to lab. T\T\S collected, blood band applied to patient. me1 Inserted saline lock: 20 gauge in right antecubital area, using aseptic technique. 11:03 CBC with Diff Sent. me1 11:03 BMP Sent. me1 11:03 Type And Screen Sent. me1 11:03 Abo/rh Typing Sent. me1 17:27 IV discontinued, bleeding controlled, No redness/swelling at site. Pressure dressing rg5 applied. Administered Medications: No medications were administered Medication: 10:20 VIS not applicable for this client. me1 12:35 Blood products: PRBCs X 1 unit given. See transfusion record. rg5 14:55 Blood products: PRBCs X 2 units given. See transfusion record. rg5 Outcome: 15:59 Discharge ordered by MD. sb4 17:27 Discharged to home via wheelchair, rg5 17:27 Condition: stable 17:27 Discharge instructions given to patient, Instructed on discharge instructions, Demonstrated understanding of instructions, 17:28 Patient left the ED. rg5 Signatures: Rosalinda Knight, Abhi Reg Sadia Farrell, RN RN ss Danitza Dolan, PA-C PA-C sb4 Amparo Juárez RN RN me1 Butch Reilly, RN RN rg5 Corrections: (The following items were deleted from the chart) 11:01 10:23 Chief complaint: Patient states: Sent by PCP for possible blood transfusion ss me1
[2025-04-15 18:43] VITALS: TEMP 98.4
[2025-04-15 18:48] VITALS: BP 152/84; O2SAT 99
== END 2025-04-15 17:28 | disposition home or self-care (01) ==
LOC: ER 09:53
DX: D64.9 Anemia, unspecified (principal); I10 Essential (primary) hypertension; Z95.818 Presence of other cardiac implants and grafts
CPT/HCPCS: 85025; 80048; 36415; 86900; 86850; 86901; 86920 ×2; 36430; 99284; P9016 ×2

== ENCOUNTER 2025-06-08 12:26 | Emergency (ER) | payer OTHER ==
[2025-06-08 13:59] LABS: Absolute Lymphocytes (CBC) 1.8 K/uL (0.7-4.9); Hematocrit 19.1 % (39.6-49.0); Hemoglobin 6.3 g/dL (13.6-17.9); MCH 36.2 pg (27.0-35.0); MCHC 32.7 g/dL (32.0-36.0); MCV 110.7 fL (80-100); MPV 9.9 fL (7.6-11.3); Nucleated RBC Absolute Count 0.1 (0-0); Nucleated Red Blood Cells % 1.1 % (0-0); RBC Red Blood Cell Count 1.73 M/uL (4.33-5.43); White Blood Count 6.20 thou/uL (4.3-10.9)
[2025-06-08] MEDS ORDERED: NA CHLORIDE 0.9% 250 ML ONE ×2 (15:23→15:25)
[2025-06-08 15:49] LABS: Anisocytosis 3+; Blood Morphology Comment NOTED (NOT SEEN); Macrocytosis 2+; Microcytosis SLIGHT; White Blood Cell Scan OK (OK)
[2025-06-08 15:50] LABS: Ovalocytes 1+; Stomatocytes 1+
--- NOTE | 2025-06-08 19:42 | ER ---
Nurse's Notes [facility] Name: Sohail Bauer Age: 75 yrs Sex: Male : 1950 Arrival Date: 06/08/2025 Time: 12:26 Bed 6 Private MD: Diagnosis: Anemia, unspecified Presentation: 06/08 12:38 Chief complaint: Patient states: SENT [facility] TO COME TO ED FOR BLOOD db TRANSFUSION DUE TO LOW HEMOGLOBIN. DENIES DIZZINESS. DENIES ANY NEW SYMPTOMS. Coronavirus screen: Client denies travel out of the [place] in the last 14 days. At this time, the client does not indicate any symptoms associated with coronavirus-19. Ebola Screen: Patient negative for fever greater than or equal to 101.5 degrees Fahrenheit, and additional compatible Ebola Virus Disease symptoms Patient denies exposure to infectious person. Patient denies travel to an Ebola-affected area in the 21 days before illness onset. No symptoms or risks identified at this time. Initial Sepsis Screen: Does the patient meet any 2 criteria? No. Patient's initial sepsis screen is negative. Does the patient have a suspected source of infection? No. Patient's initial sepsis screen is negative. Risk Assessment: Do you want to hurt yourself or someone else? Patient reports no desire to harm self or others. Onset of symptoms was June 08, 2025. 12:38 Method Of Arrival: Wheelchair db 12:38 Acuity: ANGÉLICA 3 db Triage Assessment: 12:40 General: Appears in no apparent distress. comfortable, Behavior is calm, cooperative. db Pain: Denies pain. Neuro: Level of Consciousness is awake, alert, obeys commands, Oriented to person, place, time, situation, Appropriate for age. Respiratory: Airway is patent Respiratory effort is even, unlabored, Respiratory pattern is regular, symmetrical. Historical: - Allergies: 12:40 No Known Allergies; db - PMHx: 12:40 Anemia; Hyperlipidemia; Gout; Hypertension; kidney disease; db - PSHx: 12:40 heart stent x1; db - Immunization history:: Adult Immunizations unknown. - Infectious Disease History:: Denies. - Social history:: Smoking status: Patient reports the use of cigarette tobacco products, denies chronic smoking, but will smoke occasionally. Screenin:46 [facility] ED Fall Risk Assessment (Adult) History of falling in the last 3 months, hb including since admission No falls in past 3 months (0 pts) Confusion or Disorientation No (0 pts) Intoxicated or Sedated No (0 pts) Impaired Gait Yes (1 pt) Mobility Assist Device Used Yes (1 pt) Altered Elimination Yes (1 pt) Score/Fall Risk Level 0 - 2 = Low Risk Oriented to surroundings, Maintained a safe environment, Educated pt \T\ family on fall prevention, incl call for assistance when getting out of bed. Abuse screen: Denies threats or abuse. Denies injuries from another. Nutritional screening: No deficits noted. Tuberculosis screening: No symptoms or risk factors identified. Assessment: 13:00 General: Appears in no apparent distress. Behavior is calm, cooperative. Pain: Denies hb pain. Neuro: Level of Consciousness is awake, alert, obeys commands, Oriented to person, place, time, situation. Cardiovascular: Patient's skin is warm and dry. Respiratory: Respiratory effort is even, unlabored, Respiratory pattern is regular, symmetrical. GI: No signs and/or symptoms were reported involving the gastrointestinal system. : No signs and/or symptoms were reported regarding the genitourinary system. EENT: No signs and/or symptoms were reported regarding the EENT system. Derm: Skin is intact, Skin is dry, Skin temperature is warm. 14:00 Reassessment: Patient appears in no apparent distress at this time. Patient and/or hb family updated on plan of care and expected duration. Pain level reassessed. Patient is alert, oriented x 3, equal unlabored respirations, skin warm/dry/pink. 15:00 Reassessment: Patient appears in no apparent distress at this time. Patient and/or hb family updated on plan of care and expected duration. Pain level reassessed. Patient is alert, oriented x 3, equal unlabored respirations, skin warm/dry/pink. 15:40 Reassessment: FIRST UNIT PRBC STARTED. SEE PAPER CHART FOR TRANSFUSION FLOWSHEET. hb 15:40 General: Appears in no apparent distress. comfortable, Behavior is calm, cooperative. zm Neuro: Level of Consciousness is awake, alert, obeys commands, Oriented to person, place, time, situation. Cardiovascular: Heart tones S1 S2 present Capillary refill < 3 seconds in bilateral fingers Patient's skin is warm and dry. Respiratory: Airway is patent Respiratory effort is even, unlabored, Respiratory pattern is regular, symmetrical, Breath sounds are clear bilaterally. in right upper lobe, left upper lobe, left lower lobe and right lower lobe. 16:30 Reassessment: Patient appears in no apparent distress at this time. No changes from hb previously documented assessment. Patient and/or family updated on plan of care and expected duration. Pain level reassessed. 17:30 Reassessment: Transfusion continues, pt r, patient resting with eyes closed in NAD. hb 17:40 Reassessment: Patient appears in no apparent distress at this time. Patient and/or zm family updated on plan of care and expected duration. Pain level reassessed. Patient is alert, oriented x 3, equal unlabored respirations, skin warm/dry/pink. 1 unit PRBCs completed Patient states feeling better. 18:15 Reassessment: Second unit PRBC started. See paper chart for transfusion flowsheet. zm 18:50 Reassessment: Patient appears in no apparent distress at this time. Patient and/or zm family updated on plan of care and expected duration. Pain level reassessed. Patient is alert, oriented x 3, equal unlabored respirations, skin warm/dry/pink. 19:05 General: Appears in no apparent distress. Behavior is calm, cooperative, appropriate nh2 for age. General: denies needs or concerns. 2nd unit of blood still transfusing at 200 mL/hr. Call light in reach. Pain: Denies pain. Neuro: Level of Consciousness is awake, alert, obeys commands, Oriented to person, place, time, situation, Appropriate for age. Cardiovascular: Patient's skin is warm and dry. Rhythm is sinus bradycardia. Respiratory: Airway is patent Respiratory effort is even, unlabored, Respiratory pattern is regular, symmetrical, Breath sounds are clear bilaterally. 19:41 Reassessment: rate increased to 300 mL/hr, pt tolerating well. nh2 19:41 Reassessment: Per provider order, pt is to be discharged AFTER second unit of blood is nh2 complete. 20:00 Reassessment: Patient and/or family updated on plan of care and expected duration. Pain nh2 level reassessed. Patient is alert, oriented x 3, equal unlabored respirations, skin warm/dry/pink. Patient denies pain at this time. 20:33 Reassessment: transfusion completed at 2018. nh2 Vital Signs: 12:38 BP 125 / 81; Pulse 68; Resp 16; Temp 97.5(O); Pulse Ox 99% ; Weight 69.85 kg; Height 6 db ft. 2 in. ; 13:30 BP 146 / 86; Pulse 84; Resp 17; Pulse Ox 98% ; hb 15:46 BP 150 / 99; Pulse 68; Resp 17; Temp 97.1; Pulse Ox 100% ; hb 17:40 BP 154 / 91; Pulse 65; Resp 20; Temp 97.6; Pulse Ox 100% on R/A; zm 18:50 BP 159 / 84; Pulse 56; Resp 15; Temp 97.7; Pulse Ox 99% on R/A; zm 19:00 BP 150 / 94; Pulse 62; Resp 18; Temp 98; Pulse Ox 100% on R/A; nh2 19:30 BP 158 / 87; Pulse 60; Resp 17; Temp 98; Pulse Ox 99% on R/A; nh2 20:00 BP 153 / 88; Pulse 59; Resp 17; Temp 98.1(TE); Pulse Ox 99% on R/A; nh2 12:38 Body Mass Index 19.77 (69.85 kg, 187.96 cm) db Brittanie Coma Score: 17:40 Eye Response: spontaneous(4). Motor Response: obeys commands(6). Verbal Response: zm oriented(5). Total: 15. 18:50 Eye Response: spontaneous(4). Motor Response: obeys commands(6). Verbal Response: zm oriented(5). Total: 15. ED Course: 12:35 Patient arrived in ED. al6 12:40 Triage completed. db 12:40 Gem[facility] Ch [facility]C [facility]. kb 12:40 Waqas Puente MD is Attending Physician. kb 12:40 Arm band placed on. db 13:30 Fili Resendez, RAJAT is Primary Nurse. bp 13:30 Provided Education on: CALL LIGHT . hb 14:03 Initial lab(s) drawn, by bottle labeler, sent to lab. ts3 15:30 Accessed peripheral vein via ultrasound, utilizing dynamic ultrasound technique using hb per hospital protocol. Clean \T\ dry. Dressing intact. Good blood return. Flushes easily. 20g RAC. 15:31 Provided Education on: Blood Transfusion. hb 15:47 Patient has correct armband on for positive identification. Bed in low position. Call hb light in reach. 20:34 IV discontinued, intact, bleeding controlled, No redness/swelling at site. Pressure nh2 dressing applied. 20:34 No provider procedures requiring assistance completed. nh2 Administered Medications: No medications were administered Medication: 15:47 VIS not applicable for this client. hb Outcome: 19:41 Discharge ordered by . kb 20:34 Discharged to home via wheelchair, nh2 20:34 Condition: stable 20:34 Discharge instructions given to patient, Instructed on discharge instructions, follow up and referral plans. Demonstrated understanding of instructions, follow-up care, 20:34 Patient left the ED. nh2 Signatures: Gemma Ch, FURNACE ROASTER-C FURNACE ROASTER-Ckb Anna Chao, RN RN Fili Resendez, RN RN bp Guadalupe Navarro, RN RN Viviana Villela RN RN db Noel Cortes Jr RN RN nh2 Ivonne Mueller al6 Sharon Escobar ts3 Corrections: (The following items were deleted from the chart) 12:42 12:38 Chief complaint: Patient states: SENT [facility] TO COME TO ED FOR BLOOD db TRANSFUSION DUE TO LOW HEMOGLOBIN. db 19:26 19:05 Respiratory: Airway is patent Respiratory effort is even, unlabored, Respiratory nh2 pattern is regular, symmetrical, Breath sounds are clear bilaterally. nh2 19:26 19:05 General: denies needs or concerns. 2nd unit of blood still transfusing at 200 nh2 mL/hr. nh2 20:06 19:00 BP 150 / 94; Pulse 62bpm; Resp 16bpm; Pulse Ox 100% RA; Temp 98F; nh2 nh2
--- NOTE | 2025-06-08 19:42 | EDPHYS ---
Physician Documentation [facility] Name: Sohail Bauer Age: 75 yrs Sex: Male : 1950 Arrival Date: 06/08/2025 Time: 12:26 Bed 6 Private MD: ED Physician Waqas Puente HPI: 06/08 16:24 This 75 yrs old Black Male presents to ER via Wheelchair with complaints of Abnormal kb Lab Results. 16:24 Patient is a 75-year-old male who presents for blood transfusion. States he was sent kb over from the cancer center due to low hemoglobin. Denies any bleeding. States he goes to the cancer center to see hematology but they have not been able to figure out why he is getting anemic. Reports recent normal colonoscopy. Denies any symptoms or complaints. Historical: - Allergies: 12:40 No Known Allergies; db - PMHx: 12:40 Anemia; Hyperlipidemia; Gout; Hypertension; kidney disease; db - PSHx: 12:40 heart stent x1; db - Immunization history:: Adult Immunizations unknown. - Infectious Disease History:: Denies. - Social history:: Smoking status: Patient reports the use of cigarette tobacco products, denies chronic smoking, but will smoke occasionally. ROS: 15:43 Constitutional: As per HPI kb Exam: 16:24 Constitutional: This is a well developed, well nourished patient who is awake, alert, kb and in no acute distress. Head/Face: Normocephalic, atraumatic. ENT: Moist Mucous membranes Cardiovascular: Regular rate Respiratory: Respirations even and unlabored. No increased work of breathing. Talking in full sentences Skin: Warm, dry with normal turgor. Normal color. MS/ Extremity: Pulses equal, no cyanosis. Neurovascular intact. Full, normal range of motion. Neuro: Awake and alert, GCS 15, oriented to person, place, time, and situation. Vital Signs: 12:38 BP 125 / 81; Pulse 68; Resp 16; Temp 97.5(O); Pulse Ox 99% ; Weight 69.85 kg; Height 6 db ft. 2 in. ; 13:30 BP 146 / 86; Pulse 84; Resp 17; Pulse Ox 98% ; hb 15:46 BP 150 / 99; Pulse 68; Resp 17; Temp 97.1; Pulse Ox 100% ; hb 17:40 BP 154 / 91; Pulse 65; Resp 20; Temp 97.6; Pulse Ox 100% on R/A; zm 18:50 BP 159 / 84; Pulse 56; Resp 15; Temp 97.7; Pulse Ox 99% on R/A; zm 19:00 BP 150 / 94; Pulse 62; Resp 18; Temp 98; Pulse Ox 100% on R/A; nh2 19:30 BP 158 / 87; Pulse 60; Resp 17; Temp 98; Pulse Ox 99% on R/A; nh2 20:00 BP 153 / 88; Pulse 59; Resp 17; Temp 98.1(TE); Pulse Ox 99% on R/A; nh2 12:38 Body Mass Index 19.77 (69.85 kg, 187.96 cm) db Bogard Coma Score: 17:40 Eye Response: spontaneous(4). Motor Response: obeys commands(6). Verbal Response: zm oriented(5). Total: 15. 18:50 Eye Response: spontaneous(4). Motor Response: obeys commands(6). Verbal Response: zm oriented(5). Total: 15. MDM: 12:40 Medical Screening Exam initiated kb 16:25 Differential diagnosis: Anemia, GI bleed. Data reviewed: vital signs, nurses notes. kb Historians other than the Patient: Family Member: Family. Counseling: I had a detailed discussion with the patient and/or guardian regarding the historical points, exam findings, and any diagnostic results supporting the discharge/admit diagnosis, lab results, the need for outpatient follow up, a family practitioner, to return to the emergency department if symptoms worsen or persist or if there are any questions or concerns that arise at home. 06/08 12:45 Order name: Type And Screen kb 06/08 12:45 Order name: CBC with Diff; Complete Time: 15:52 kb 06/08 12:45 Order name: BNP; Complete Time: 14:24 kb 06/08 14:07 Order name: CBC Smear Scan; Complete Time: 15:52 EDMS 06/08 14:28 Order name: Bb Add On bd 06/08 14:31 Order name: Packed RBC Leukored EDMS 06/08 12:45 Order name: IV Start; Complete Time: 14:02 kb Administered Medications: No medications were administered Disposition Summary: 06/08/25 19:41 Discharge Ordered Notes: Location: Home kb Condition: Stable kb Diagnosis - Anemia, unspecified kb Followup: kb - With: Emergency Department - When: As needed - Reason: Worsening of condition Followup: kb - With: Private Physician - When: 2 - 3 days - Reason: Recheck today's complaints, Continuance of care, Re-evaluation by your physician Discharge Instructions: - Discharge Summary Sheet kb - Anemia kb - Blood Transfusion, Adult, Care After, [id number] kb Forms: - Medication Reconciliation Form kb - Antibiotic Education kb - Prescription Opioid Use kb - Patient Portal Instructions kb - Leadership Thank You Letter kb Critical care time excluding procedures: 18:57 Critical care time: Bedside Care: 12 minutes, Consultation: 10 minutes, Family kb Intervention: 10 minutes. Total time: 32 minutes Signatures: Dispatcher [employer] EDGemma Cox, SENIOR RISK MANAGER-C VARGAS-Viviana Tello RN RN db Corrections: (The following items were deleted from the chart) 12:46 12:45 CBC+H.LAB.BRZ ordered. EDMS EDMS 12:46 12:45 TYPE AND SCREEN+BB.LAB.BRZ ordered. EDMS EDMS 12:46 12:45 PROBNP+C.LAB.BRZ ordered. EDMS EDMS
[2025-06-09 03:54] VITALS: O2SAT 99
[2025-06-09 03:55] VITALS: BP 153/88; TEMP 98.1
== END 2025-06-08 20:34 | disposition home or self-care (01) ==
LOC: ER 12:26
PROC: 30233N1 Transfusion of Nonautologous Red Blood Cells into Peripheral Vein, Percutaneous Approach (ICD-10-PCS; principal; 2025-06-08)
DX: D64.9 Anemia, unspecified (principal); F17.210 Nicotine dependence, cigarettes, uncomplicated
CPT/HCPCS: 85025; 36415; 86900; 86850; 86901; 86920 ×2; 83880; 99284; 36430; P9016 ×2; J7050 ×2